=== PATIENT | female | born 1945 | race Caucasian/White ===

== ENCOUNTER 2016-11-21 11:21 | Observation (INO) | payer MEDICARE, OTHER ==
[2016-11-21] MEDS ORDERED: Acetaminophen TAB* 325 MG PO ONE (11:48)
[2016-11-21] MEDS ORDERED: Acetaminophen TAB* 325 MG ONE (11:49)
[2016-11-21] MEDS ORDERED: Ondansetron INJ* 2 MG/ML VIAL IV ONE (13:05)
[2016-11-21 13:11] LABS: Urine Bacteria Absent (Absent); Urine Bilirubin Negative (Negative); Urine Glucose Negative (Negative); Urine Nitrite Negative (Negative)
--- NOTE | 2016-11-21 13:32 | ED ---
Influenza-Like Illness - HPI Summary HPI Summary: 71 female presents today with complaints of feeling very ill, coughing, SOB, fever/chills, nausea and body aches. She states the symptoms were mild last night however got much worse upon waking up this morning. She states the cough is non-productive with only phlegm coming up. Denies hemoptysis and vomiting. Does have dry heaves. She did not have the flu shot this year. Has been around her daughter who has been sick and thinks she had the flu even though her cultures came back negative. She states every joint in her body ache including her toes, fingers, knees, back and opening her mouth. She also states she had a headache last night which she took Excedrin for and it did give her some relief. She has not tried taking anything else. Denies chest pain but states it does hurt when she coughs. Denies abdominal pain and diarrhea, constipation. Has not recently been in [place] and does not remember being bit by a tick. - History of Current Complaint Chief Complaint: EDUpperRespComplaint Time Seen by Provider: 11/21/16 11:43 Hx Obtained From: Patient Onset/Duration: Sudden Onset Severity: Worse Since: Associated Signs & Symptoms: Fever, Myalgia, Cough, Headache - Allergy/Home Medications Allergies/Adverse Reactions: Allergies Allergy/AdvReac Type Severity Reaction Status Date / Time Iodine Allergy Intermediate Rash Verified 02/24/16 10:03 Shellfish Allergy Allergy Rash Verified 02/24/16 10:03 ct contrast Allergy Rash Uncoded 03/19/16 12:42 PMH/Surg Hx/FS Hx/Imm Hx Endocrine/Hematology History: Reports: Hx Diabetes, Hx Thyroid Disease - HYPOTHYROIDISM Denies: Hx Anticoagulant Therapy Cardiovascular History: Reports: Hx Angina, Hx Hypercholesterolemia - HLD, Hx Hypertension GI History: Reports: Hx Gastroesophageal Reflux Disease Musculoskeletal History: Reports: Other Musculoskeletal History - DJD Sensory History: Reports: Hx Contacts or Glasses - FOR READING Opthamlomology History: Reports: Hx Contacts or Glasses - FOR READING - Cancer History Hx Chemotherapy: No Hx Radiation Therapy: No - Surgical History Surgery Procedure, Year, and Place: . Complete Hysterectomy. Hiatal Hernia Repair x2. bilat knee replacemnt-2008 Infectious Disease History: No Infectious Disease History: Denies: Hx Clostridium Difficile, Hx Hepatitis, Hx Human Immunodeficiency Virus (HIV), Hx of Known/Suspected MRSA, Hx Shingles, Hx Tuberculosis, Hx Known/ Suspected VRE, Hx Known/Suspected VRSA, History Other Infectious Disease, Traveled Outside the [place] in Last 30 Days - Family History Known Family History: Positive: Cardiac Disease, Hypertension - Social History Alcohol Use: None Substance Use Type: Reports: None Smoking Status (MU): Never Smoked Tobacco Have You Smoked in the Last Year: No Review of Systems Positive: Fever, Chills, Fatigue Eyes: Negative Positive: Sore Throat, Nasal Discharge Positive: Chest Pain - when coughing Positive: Shortness Of Breath, Cough Positive: Nausea Genitourinary: Negative Positive: Arthralgia - all joints, Myalgia Skin: Negative Neurological: Negative Psychological: Normal All Other Systems Reviewed And Are Negative: Yes Physical Exam Triage Information Reviewed: Yes Vital Signs On Initial Exam: Initial Vitals Temp Pulse Resp BP Pulse Ox 102.3 F 87 18 197/98 92 11/21/16 11:41 11/21/16 11:41 11/21/16 11:41 11/21/16 11:41 11/21/16 11:41 elevated BP, fever, low O2 Vital Signs Reviewed: Yes Appearance: Positive: No Pain Distress - unless moving joints, Well-Nourished, Ill-Appearing Skin: Positive: Warm, Dry Eyes: Positive: Normal, Conjunctiva Clear ENT: Positive: Normal ENT inspection, Hearing grossly normal, Pharynx normal, Nasal drainage, TMs normal Dental: Positive: Cervical Lymphadenopathy Neck: Positive: Supple, Nontender Respiratory/Lung Sounds: Positive: Clear to Auscultation, Breath Sounds Present Cardiovascular: Positive: Normal, RRR, Pulses are Symmetrical in both Upper and Lower Extremities Abdomen Description: Positive: Nontender, No Organomegaly, Soft Bowel Sounds: Positive: Present Musculoskeletal: Positive: Normal, Pain @ - when moving all joints, full ROM, sensation and strength intact.. Negative: Edema Left, Edema Right Neurological: Positive: Normal, Sensory/Motor Intact, Alert, Oriented to Person Place, Time, CN Intact II-III, Reflexes Intact, NV Bundle Intact Distally, Normal Gait, Speech Normal Psychiatric: Positive: Normal, Affect/Mood Appropriate - [place] Coma Scale Coma Scale Total: 15 Diagnostics - Vital Signs Vital Signs Temp Pulse Resp BP Pulse Ox 11/21/16 13:01 100.8 F 11/21/16 11:41 102.3 F 87 18 197/98 92 - Laboratory Lab Results: Lab Results 11/21/16 11/21/16 Range/Units 12:13 12:50 Urine Color Yellow Urine Appearance Clear Urine pH 7.0 (5-9) Ur Specific [place] 1.017 (1.010-1.030) Urine Protein 1+(30 mg/dl) H (Negative) Urine Ketones Negative (Negative) Urine Blood Negative (Negative) Urine Nitrate Negative (Negative) Urine Bilirubin Negative (Negative) Urine Urobilinogen Negative (Negative) Ur Leukocyte Esterase Negative (Negative) Urine WBC (Auto) Absent (Absent) Urine RBC (Auto) Absent (Absent) Ur Squamous Epith Cells Present H (Absent) Urine Bacteria Absent (Absent) Urine Glucose Negative (Negative) Influenza A (Rapid) Negative (Negative) Influenza B (Rapid) Negative (Negative) Result Diagrams: 11/21/16 13:15 11/21/16 13:15 Lab Statement: Any lab studies that have been ordered have been reviewed, and results considered in the medical decision making process. Re-Evaluation - Re-Evaluation First Eval Re-Evaluation Time: 14:00 Change: Improved - patient was feeling much better after fluids, tylenol, zofran and oxygen Flu Symptom Course/Dx - Course Course Of Treatment: labs, d-dimer, troponin, lipase and chest x-ray obtained. EKG-NSR, no stemi. unremarkable besides troponin at .04. fluids, zofran, oxygen and tylenol given. patient was feeling much better after however still felt very weak upon going to the bathroom and still feels ill. she would feel more comfortable staying in the hospital while symptoms persist. talked to hospitalist Dr Campuzano and he will admit her to OBV unit if patient persists. Discussed options of going home and being admitted. Patient has decided to go home at this time and with worsening symptoms knows to return. Will be treated for influenza despite negative culture as it could be a different strain. Tamiflu will be prescribed and prescription strength tylenol. Given dose of motrin before departing. - Diagnoses Differential Diagnosis/HQI/PQRI: Positive: Bronchitis, Influenza, Pneumonia, Upper Respiratory Infection, Other - Cardiac, PE, pancreatitis, sepsis Provider Diagnoses: Influenza, Fever Discharge - Discharge Plan Condition: Stable Disposition: HOME Prescriptions: Acetaminophen TAB* [Tylenol TAB*] 650 mg PO Q4H PRN #25 tab PRN Reason: Fever Oseltamivir CAP* [Tamiflu CAP*] 75 mg PO BID #10 cap Patient Education Materials: Influenza (ED) Referrals: Amol Chery MD [Primary Care Provider] - Additional Instructions: Take prescribed Tamiflu twice a day for the next 5 days to shorten illness. Take prescribed tylenol as directed to keep fever and pain under control. Alternate tylenol and motrin every 4 hours. Drink plenty of fluids and get plenty of rest. IF symptoms worsen and you experience difficulty breathing or chest pain or symptoms do not resolve in the next 5 days please seek medical attention. Follow up with primary care doctor is recommended.
[2016-11-21 13:34] LABS: Hematocrit 39 % (35-47); Hemoglobin 12.7 g/dl (12.0-16.0); Mean Corpuscular HGB Conc 33 g/dl (31-36); Mean Corpuscular Hemoglobin 27 pg (27-31); Mean Corpuscular Volume 82 fL (80-97); Mean Platelet Volume 11 um3 (7.4-10.4); Red Blood Count 4.67 10^6/ul (4.0-5.4); Red Cell Distribution Width 14 % (10.5-15); White Blood Count 6.8 10^3/ul (3.5-10.8)
[2016-11-21] MEDS ORDERED: NS 0.9% 1000 ML* 1,000 ML IV ONE ×2 (13:51→16:59)
[2016-11-21 13:52] LABS: Albumin 4.4 g/dL (3.2-5.2); BUN/Creatinine Ratio 25.4 (8-20); C Reactive Protein 8.16 mg/L (< 5.00); Calcium 9.7 mg/dL (8.6-10.3); EGFR African American 104.7 (>60); EGFR Non-African American 81.4 (>60); Potassium 3.8 mmol/L (3.5-5.0); Total Protein 7.4 g/dL (6.4-8.9)
--- NOTE | 2016-11-21 13:53 | RAD ---
HISTORY: Shortness of breath COMPARISONS: March 19, 2017 VIEWS: 2: Frontal dual-energy and lateral views of the chest. FINDINGS: CARDIOMEDIASTINAL SILHOUETTE: The cardiomediastinal silhouette is normal. MOSES: The moses are normal. PLEURA: The costophrenic angles are sharp. No pleural abnormalities are noted. LUNG PARENCHYMA: The lungs are clear. ABDOMEN: The upper abdomen is clear. There is no subphrenic gas. BONES AND SOFT TISSUES: Degenerative changes are noted along the spine. OTHER: None. IMPRESSION: NO ACTIVE CARDIOPULMONARY DISEASE.
[2016-11-21 13:56] LABS: Troponin I 0.04 ng/mL (<0.04)
[2016-11-21] MEDS ORDERED: Ibuprofen TAB* 600 MG PO ONE (16:41)
[2016-11-21] MEDS ORDERED: Oseltamivir CAP* 75 MG PO ONE (16:52)
[2016-11-21] MEDS ORDERED: Dextrose 50% Syringe 50 ML* 25 GM/50 ML SYRINGE IV PUSH PRN (17:55)
[2016-11-21] MEDS: Insulin LISPRO* 1 UNITS UNIT SUBCUT SCH (21:07)
[2016-11-21] MEDS: Heparin VIAL(*) 5000 UNITS/ML VIAL (FIVE THOUSAND) SUBCUT SCH (21:08)
--- NOTE | 2016-11-21 21:17 | HP ---
ADMISSION HISTORY AND PHYSICAL: DATE OF ADMISSION: 11/21/16 PRIMARY CARE PROVIDER: Dr. Chery. HEALTHCARE PROXY: . CODE STATUS: Full. SOURCE OF INFORMATION: History obtained from interview with the patient, review of past medical records. RELIABILITY: Fair. CHIEF COMPLAINT: Fever, myalgias. HISTORY OF PRESENT ILLNESS: A 71-year-old female with past medical history of diabetes, hypertension, hyperlipidemia, CAD, cardiac catheterization without intervention in January of 2016, who started feeling ill Sunday night, three days prior to this admission. On Sunday, she was feeling better; however , in the evening, again felt worse. 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 This morning at 3 a.m., she developed cough and generalized myalgias. Again, she went to work, developed increased myalgias, shortness of breath, and back ache. She went home, felt febrile, though did not measure temperature, came to the hospital where she was found to be acutely febrile. In the emergency room, her troponin was elevated at 0.05. Hospitalist service was consulted for admission. PAST MEDICAL HISTORY: Type 2 diabetes, hypertension, hyperlipidemia, hypothyroidism, GERD, degenerative joint disease, non-obstructive CAD with last cardiac catheterization in January 2016. PAST SURGICAL HISTORY: Hernia repair, hysterectomy, , bilateral knee replacement in 2008. HOME MEDICATIONS: Need to be confirmed; however, the patient indicates unchanged from last discharge include: 1. Amlodipine 2.5 mg. 2. Janumet 1 tab twice daily. 3. Rosuvastatin 10 mg daily. 4. Fish oil 1000 mg daily. 5. Naproxen 500 mg twice daily as needed. 6. Metoprolol tartrate 25 mg daily. 7. Synthroid 25 mcg daily. 8. Hydrochlorothiazide 25 mg daily. 9. Esomeprazole 40 mg daily. 10. Aspirin 81 mg daily. ALLERGIES: To IODINE, SHELLFISH, and CT CONTRAST. FAMILY HISTORY: Father with CAD. Mother with CAD and uterine cancer. Brother with CAD and RI. SOCIAL HISTORY: No tobacco, alcohol, or illicit's. 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 REVIEW OF SYSTEMS: As per HPI, otherwise all other systems are negative. PHYSICAL EXAMINATION GENERAL: Sitting up in bed, interactive, pleasant, no apparent distress. VITAL SIGNS: In the emergency room, T-max is 102.3, blood pressure 153/74, heart rate 81, respiratory rate is 20. HEENT: Oropharynx is clear. Has moist mucous membranes. Sclerae are anicteric. Coughing during our exam. LUNGS: Her lungs are diffusely clear throughout. HEART: Regular rate and rhythm. No murmurs, rubs, or gallops. ABDOMEN: Soft, nontender, nondistended. EXTREMITIES: Warm and well perfused without clubbing, cyanosis, edema, or warmth. She has 2+ peripheral pulses. Less than 2-second cap refill. Good skin turgor. NEUROLOGIC: She is A and O x3. Cranial nerves II through XII intact. No apparent agitation, anxiety, or depression. DIAGNOSTIC STUDIES/LAB DATA: Labs reviewed: Negative for rapid influenza. White blood cell count 6.8, hemoglobin 12.7, platelets 150. Troponin I 0.04, increasing to 0.05 on recheck at 3 hours. EKG: Normal sinus rhythm, 90 beats per minute. Normal limit axis, 1-mm ST depression in V5 and V6, T-wave inversions in aVF and II with Qs in III and aVF. Notable LVH. Cardiac catheterization, January 2016, impression: No significant stenotic coronary artery disease, mild disease as described above. Increased left ventricular end diastolic pressure in the face of central hypertension suggestive of decreased left ventricular diastolic compliance. ASSESSMENT AND PLAN: This is a 71-year-old female with past medical history as outlined above presenting with symptomatology consistent with upper respiratory tract infection, possibly flu, and found to have elevated troponin. 1. Shortness of breath and upper respiratory infection symptoms: Suspect flu despite negative testing. Symptomatic management and initiate Tamiflu. Continue fluids, which were initiated in the emergency room. 2. Elevated troponins: Suspect demand ischemia in the setting of known level of coronary artery disease and last cardiac catheterization in the absence of chest pain. Trend troponins while hospitalized. 3. Hypertension: Continue home medications. 4. Hypothyroidism: Continue levothyroxine. 5. Coronary artery disease: Continue aspirin. 6. DVT prophylaxis: Heparin subcu. 7. Code status is full. CC: Dr. Chery * [id number]/CPS #: [id number] [facility]
[2016-11-22] MEDS: Acetaminophen TAB* 325 MG PO PRN ×2 (03:33→09:32)
[2016-11-22] MEDS: Heparin VIAL(*) 5000 UNITS/ML VIAL (FIVE THOUSAND) SUBCUT SCH (05:13)
[2016-11-22] MEDS ORDERED: Levothyroxine TAB* 50 MCG TAB PO SCH (06:00)
[2016-11-22] MEDS ORDERED: metFORMIN* 1,000 MG TAB PO SCH (08:00)
[2016-11-22 08:01] VITALS: BP 131/64
[2016-11-22] MEDS: Insulin LISPRO* 1 UNITS UNIT SUBCUT SCH (08:41)
[2016-11-22] MEDS ORDERED: Aspirin Low Dose CHEW TAB* 81 MG PO SCH (09:00)
[2016-11-22] MEDS ORDERED: Oseltamivir CAP* 75 MG PO SCH (09:00)
[2016-11-22] MEDS ORDERED: amLODIPine TAB* 5 MG PO SCH (09:00)
[2016-11-22] MEDS ORDERED: Hydrochlorothiazide TAB* 25 MG PO SCH (09:00)
--- NOTE | 2016-11-22 10:42 | DS ---
DATE OF ADMISSION: 11/21/2016. DATE OF DISCHARGE: 11/22/2016. PRIMARY CARE PROVIDER: Dr. Chery. PRIMARY DIAGNOSIS: Suspected influenza infection. MEDICATIONS ON DISCHARGE: 1. Unchanged from home medications except for the addition of Tamiflu 75 mg twice daily for four additional days. 2. Janumet 50/100 twice daily. 3. Aspirin 81 mg daily. 4. Toprol unspecified. 5. Metoprolol Succinate or Tartrate 100 mg daily, suspected to be Succinate based on dosing. 6. Vytorin 10/20 one in the evening. 7. Hydrochlorothiazide 25 mg daily. 8. Synthroid 50 mcg daily. 9. Lisinopril 20 mg twice daily. 10. Isosorbide mononitrate 60 mg in the morning. 11. Lovaza two caps in the morning and at night. 12. Glyburide unspecified dose once daily. HISTORY OF PRESENT ILLNESS AND HOSPITAL COURSE: This is a pleasant, 71-year- old female with a past medical history as outlined in the history of present illness on the day admission who presented to the hospital with worsening fevers or myalgias. There is high suspicion for influenza; however, influenza was negative. The patient was concerned about returning home and the Hospitalist Service was consulted for admission. In addition, her troponin I increased from 0.04 to 0.05 prompting further evaluation on Telemetry overnight. It should be noted she had a recent cardiac catheterization in March that was negative for obstructive CAD. She had no chest pain during this event. She was monitored and received IV hydration. The following day on the day of discharge, she was much improved. She did have a fever overnight to 101.3, as well as on presentation, controlled with Tylenol. She was advised to continue Tylenol as needed for fevers once returning home and remain well hydrated. AT FOLLOW-UP, PLEASE: 1. Ensure patient continues correct home medications. 2. No other specific labs or vitals that need follow-up. REASONS TO RETURN TO THE HOSPITAL: Including, but not limited to recurrent or worsening symptoms, high fevers, chills, night sweats, chest pain, shortness of breath, lightheadedness, loss of conscious, near loss of consciousness, or inability to obtain or tolerate medications were discussed with the patient and she acknowledged understanding. Greater than 45 minutes were spent on the discharge of this patient with greater than half spent [id number] with the patient and her . CC: Dr. Chery* [id number]/CPS #: [id number] [facility]
== END 2016-11-22 10:36 | disposition home or self-care (01) ==
LOC: ED 11:21 → MEDTELE 17:47
PROVIDERS: ADMIT Internal Medicine; ATTEND Internal Medicine
DX: R50.9 Fever, unspecified (principal); M79.1 Myalgia; I10 Essential (primary) hypertension; E78.5 Hyperlipidemia, unspecified; I25.10 Atherosclerotic heart disease of native coronary artery without angina pectoris; R06.02 Shortness of breath; E11.9 Type 2 diabetes mellitus without complications; M19.90 Unspecified osteoarthritis, unspecified site
CPT/HCPCS: 36415; 71020; 80053; 81003; 81015; 83605; 83690; 84484; 85025; 85379; 86140; 87040; 87502; 93005; 96374; 99284; A9270-GY; G0378; J1644; J2405

== ENCOUNTER 2017-12-02 11:00 | Emergency (ER) | payer MEDICARE ==
[2017-12-02] MEDS ORDERED: oxyCODONE/Acetamin 5/325 MG* TAB PO ONE ×2 (11:09→12:54)
[2017-12-02] MEDS ORDERED: oxyCODONE/Acetamin 5/325 MG* TAB ONE (12:56)
--- NOTE | 2017-12-02 12:56 | RAD ---
INDICATION: Atraumatic knee pain COMPARISON: None TECHNIQUE: AP and lateral views were obtained. FINDINGS: There is mild spurring tibial spines and there is patellofemoral joint space narrowing. There is no acute bony change. There is no joint effusion. IMPRESSION: MINOR OSTEOARTHRITIC CHANGE
--- NOTE | 2017-12-02 13:01 | RAD ---
INDICATION: Atraumatic back and leg pain COMPARISON: None TECHNIQUE: Noncontrast axial source images was performed from the thoracolumbar junction to the sacrum. Coronal and and sagittal reformatted images were generated. FINDINGS: Vertebrae: There is no fracture or acute focal bony lesion. There are osteocytic changes with prominent facet arthropathy at L4-L5 and L5-S1. There is vacuum disc phenomena with partially calcified disc at L5-S1. Alignment: The lumbar vertebrae are normally aligned. Central Canal: There are no significant CT abnormalities of the central canal or foramina. MR imaging is a more sensitive method to evaluate the canal and foramina. Intervertebral disc spaces: The disc spaces are maintained. Soft tissues: The paravertebral soft tissues are normal. Other: None IMPRESSION: NO ACUTE CT FINDINGS. MODERATE FACET ARTHROPATHY L4-L5 AND L5-S1. DEGENERATIVE DISEASE L5-S1 appear
--- NOTE | 2017-12-02 13:34 | RAD ---
INDICATION: Pain and swelling. COMPARISON: None TECHNIQUE: Duplex interrogation of the Lowerextremity was performed. FINDINGS: Deep veins: The common femoral, great saphenous, profunda femoris, proximal, mid, and distal deep femoral, popliteal, posterior tibial, and peroneal veins are patent. There is normal compressibility, augmentation, and phasic flow. Superficial veins: There are no findings of superficial thrombophlebitis. Popliteal fossa:There is no evidence of a popliteal cyst. Soft tissues:There are no soft tissue abnormalities. IMPRESSION: Normal examination. No evidence of deep venous thrombosis
[2017-12-02 15:01] VITALS: BP 151/95
--- NOTE | 2017-12-02 22:22 | ED ---
Yunier Farris Stephanie, scribed for Hossein Tavares MD on 12/02/17 at 1131 . Lower Extremity - HPI Summary HPI Summary: The pt is a 72 y/o F presenting to the ED with c/o L knee pain that began last night. Symptoms include chronic lower back pain. The pt states she felt something snap in her knee. The pain is located behind the L knee and radiated down her L leg to her toes. She states that if she did not grab something next to her, she would have fallen. The pt reports a lump behind her L knee. She has titanium in her R knee. At 10:15 this morning she took naproxen for pain relief. Aggravating factors include standing and ambulating. - History of Current Complaint Stated Complaint: LEFT LEG PAIN Time Seen by Provider: 12/02/17 11:04 Hx Obtained From: Patient Onset of Pain: Post Accident Onset/Duration: Still Present - 1 Severity Currently: Severe Pain Intensity: 10 Pain Scale Used: 0-10 Numeric Timing: Constant Location: Is Discrete @ - L knee/LE Associated Signs And Symptoms: Positive: Knee Pain Aggravating Factor(s): Standing, Ambulation, Movement Alleviating Factor(s): Rest Able to Bear Weight: No - Allergies/Home Medications Allergies/Adverse Reactions: Allergies Allergy/AdvReac Type Severity Reaction Status Date / Time Iodinated Contrast- Oral and Allergy Rash Verified 12/02/17 11:44 IV Dye iodine Allergy Rash Verified 12/02/17 11:44 shellfish derived Allergy Rash Verified 12/02/17 11:44 PMH/Surg Hx/FS Hx/Imm Hx Endocrine/Hematology History: Reports: Hx Diabetes, Hx Thyroid Disease - HYPOTHYROIDISM Denies: Hx Anticoagulant Therapy Cardiovascular History: Reports: Hx Angina, Hx Hypercholesterolemia - HLD, Hx Hypertension GI History: Reports: Hx Gastroesophageal Reflux Disease Musculoskeletal History: Reports: Other Musculoskeletal History - DJD Sensory History: Reports: Hx Contacts or Glasses - FOR READING Opthamlomology History: Reports: Hx Contacts or Glasses - FOR READING - Cancer History Hx Chemotherapy: No Hx Radiation Therapy: No - Surgical History Surgery Procedure, Year, and Place: . Complete Hysterectomy. Hiatal Hernia Repair x2. bilat knee replacemnt-2008 Hx Anesthesia Reactions: No - Immunization History Date of Tetanus Vaccine: up to date Date of Influenza Vaccine: never Infectious Disease History: No Infectious Disease History: Denies: Hx Clostridium Difficile, Hx Hepatitis, Hx Human Immunodeficiency Virus (HIV), Hx of Known/Suspected MRSA, Hx Shingles, Hx Tuberculosis, Hx Known/ Suspected VRE, Hx Known/Suspected VRSA, History Other Infectious Disease, Traveled Outside the [place] in Last 30 Days - Family History Known Family History: Positive: Cardiac Disease, Hypertension - Social History Occupation: Employed Part-time Lives: With Family Alcohol Use: Rare Substance Use Type: Reports: None Smoking Status (MU): Never Smoked Tobacco Have You Smoked in the Last Year: No Review of Systems Negative: Fever Positive: Other - L knee pain, L LE pain, chronic lower back pain All Other Systems Reviewed And Are Negative: Yes Physical Exam - Summary Physical Exam Summary: General: well-appearing, no pain distress Skin: warm, color reflects adequate perfusion, dry Head: normal Eyes: EOMI, LICHA ENT: normal Neck: supple, nontender Respiratory: CTA, breath sounds present Cardiovascular: RRR Abdomen: soft, nontender Bowel: present Musculoskeletal:Tender to palpation; most tender in popliteal, pain with ROM, knee stable to exam, no effusion Neurological: normal, sensory/motor intact, A&O x3 Psychological: affect/mood appropriate Triage Information Reviewed: Yes Vital Signs On Initial Exam: Initial Vitals Temp Pulse Resp BP Pulse Ox 96.9 F 65 16 187/80 96 12/02/17 11:11 12/02/17 11:11 12/02/17 11:11 12/02/17 11:11 12/02/17 11:11 Vital Signs Reviewed: Yes Diagnostics - Vital Signs Vital Signs Temp Pulse Resp BP Pulse Ox 12/02/17 11:18 16 12/02/17 11:11 96.9 F 65 16 187/80 96 - Laboratory Lab Statement: Any lab studies that have been ordered have been reviewed, and results considered in the medical decision making process. - Radiology XRay Knee Xray Interpretation: Positive (See Comments) Radiology Interpretation Completed By: Radiologist - MINOR OSTEOARTHRITIC CHANGE - CT Lumbar Spine CT Interpretation: No Acute Changes CT Interpretation Completed By: Radiologist - NO ACUTE CT FINDINGS. MODERATE FACET ARTHROPATHY L4-L5 AND L5-S1. DEGENERATIVE DISEASE L5-S1 appear - Additional Comments Diagnostic Additional Comments: LE US reveals: Normal examination. No evidence of deep venous thrombosis Lower Extremity Course/Dx - Course Course Of Treatment: BP noted and advised to follow up with PCP. Medications reviewed. Allergies noted. DISCUSSED RESULTS WITH PATIENT. F/U PMD OR ORTHOPEDICS. - Diagnoses Provider Diagnoses: HTN (hypertension), Left knee pain Discharge - Discharge Plan Condition: Stable Disposition: HOME Prescriptions: oxyCODONE/Acetamin 5/325 MG* [Percocet 5/325 TAB*] 1 tab PO Q4H PRN #20 tab MDD 6 PRN Reason: Pain Patient Education Materials: Knee Pain (ED), Back Pain (ED) Referrals: Amol Chery MD [Primary Care Provider] - Additional Instructions: FOLLOW UP WITH YOUR DOCTOR. RETURN TO THE EMERGENCY DEPARTMENT FOR ANY WORSENING OF YOUR CONDITION OR QUESTIONS OR CONCERNS. YOUR BLOOD PRESSURE WAS ELEVATED TODAY; FOLLOW UP WITH YOUR PRIMARY CARE DOCTOR WITHIN THE NEXT 1 WEEK. The documentation as recorded by the Yunier allen Stephanie accurately reflects the service I personally performed and the decisions made by me, Hossein Tavares MD.
== END 2017-12-02 15:00 | disposition home or self-care (01) ==
LOC: ED 11:00
DX: I10 Essential (primary) hypertension (principal); M25.562 Pain in left knee; M54.5 Low back pain; Z87.19 Personal history of other diseases of the digestive system
CPT/HCPCS: 72131; 99283; A9270-GY

== ENCOUNTER 2018-03-28 09:38 | Emergency (ER) | payer MEDICARE, OTHER ==
[2018-03-28] MEDS ORDERED: cloNIDine TAB* 0.1 MG PO ONE (10:22)
--- OUTSIDE RECORDS SUMMARY | 2018-03-28 10:33 | XMS REPORT ---
:1945 External Reference #:[id number] Author Organization [employer] Address [address] [facility] [place] [address] Phone [phone] Care Team Providers Name Role Phone Amol Chery MD Primary Care Physician Unavailable Payers Type Date Identification Numbers Payment Provider Subscriber Medicare Primary Effective: Policy Number: Medicare Amarilis Calderon 2010 [id number] PayID: [id number] [address] [place] [address] Medigap Part B Policy Number: [id number] A[employer] Insurance Amarilis Hernandesnlori PayID: [id number] [address] [place] [address] Medigap Part B Effective: Policy Number: A[employer]na Insurance Alejandro Calderon 2006 [id number] Expires: 2016 Group Number: [id number] [address] PayID: [id number] [place] [address] Problems Date Description Provider Status Onset: 12/06/2017 H/O: hypertension Scott Grove MD Active Onset: 12/06/2017 Hypercholesterolemia Scott Grove MD Active Onset: 12/06/2017 Arthritis Scott Grove MD Active Onset: 12/06/2017 Type 2 diabetes mellitus Scott Grove MD Active Family History Date Family Member(s) Problem(s) Comments General No Current Problems Father due to CAD () Mother due to Ovarian () Cancer Onset: (03/13/2018) Siblings 5 Siblings 5 1 - cardiac issues Social History Type Date Description Comments Lives With Spouse 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 Simvastatin 03/13 Active Tablets 20mg 1 by mouth every day Oscar Wood M.D. Walker 01/15 Active Misc x one M25.562 Gwen Grove MD Percocet 01/15 Active Tablets 5-325mg 10tab 1 tab by s mouth every F 6 hours as Perfecto, needed Tramadol HCL 12/12 Active Tablets 50mg 30tab 1 tablet by s mouth every F 4-6 hours Perfecto, as needed pain Aspirin Adult Low Active Tablets 81mg 1 by mouth Unknown Dose /0000 DR every day Toprol XL Active Tablets 100mg 1 by mouth Unknown /0000 ER 24HR every day Hydrochlorothiazid Active Tablets 25mg 1 by mouth Unknown e /0000 every day Synthroid Active Tablets 50mcg 1 by mouth Unknown /0000 every day Lisinopril Active Tablets 10mg 1 by mouth Unknown /0000 every day Glyburide Active Tablets 5mg take one Unknown /0000 tablet by mouth daily Naproxen Active Tablets 375mg twice a day Unknown /0000 with food Janumet XR Active Tablets 50-1000mg 1 po bid Unknown /0000 ER 24HR Simvastatin Hx Tablets 20mg Take 1 Unknown /0000 Tablet By - Mouth AT 12 Bedtime Cholesterol Janumet Hx Tablets 50-1000mg take 1 Unknown /0000 tablet by - mouth twice 03/12 a day Vytorin Hx Tablets 10-20mg 1 by mouth Unknown /0000 every day - 03/12 Isosorbide Hx Tablets 60mg take one by Unknown Mononitrate ER /0000 ER 24HR mouth once - daily 03/12 Lovaza 00 Hx Capsules 1gm take one Unknown /0000 capsule by - mouth twice 03/12 Medications Administered in Office Medication Date Status Form Strength Qnty SIG Indications Ordering Provider Depomedrol Administered Injection Scott F 40MG Charley Grove MD Depomedrol Administered Injection Scott F 40MG Charley Grove MD Vital Signs Date Vital Result Comment 03/13/2018 Height 60 inches 5'0" Weight 180.00 lb w/shoes Heart Rate 72 /min BP Systolic Sitting 134 mmHg lue lg cuff BP Diastolic Sitting 74 mmHg lue lg cuff BMI (Body Mass Index) 35.1 kg/m2 Ejection Fraction 45% stress test 06/22/2011 03/11/2018 Height 60 inches 5'0" Heart Rate 76 /min BP Systolic 152 mmHg BP Diastolic 80 mmHg Respiratory Rate 18 /min Body Temperature 98.0 F Pain Level 10 02/26/2018 Height 60 inches 5'0" Weight 190.00 lb Heart Rate 88 /min BP Systolic Sitting 148 mmHg BP Diastolic Sitting 88 mmHg Respiratory Rate 16 /min Body Temperature 98.0 F Pain Level 7 BMI (Body Mass Index) 37.1 kg/m2 01/15/2018 Heart Rate 76 /min BP Systolic 160 mmHg BP Diastolic 82 mmHg Respiratory Rate 12 /min Body Temperature 97.4 F Pain Level 8 01/08/2018 Heart Rate 76 /min BP Systolic 160 mmHg BP Diastolic 104 mmHg Respiratory Rate 20 /min Body Temperature 97.8 F Pain Level 12 12/06/2017 Height 60 inches 5'0" Weight 190.00 lb Heart Rate 66 /min BP Systolic 146 mmHg BP Diastolic 88 mmHg Respiratory Rate 16 /min Body Temperature 98.0 F Pain Level 6 BMI (Body Mass Index) 37.1 kg/m2 Results Description No Information Procedures Date CPT Code Description Status 03/13/2018 77693 EKG Tracing & Interpretation Completed 02/26/2018 18231 Inject/Drain Joint/Bursa Major W/O US Completed 12/06/2017 51193 Inject/Drain Joint/Bursa Major W/O US Completed 02/26/2016 38851 Left Heart Cath. Incl S/I Coronaries, Angio S/I V Gram Completed If Done 02/25/2016 09244 Treadmill Interp/Report Only Completed 02/25/2016 29056 Stress Test Supervsn W/Out I/R Completed 02/24/2016 96514 EKG, Interpretation Only Completed 01/04/2011 26555 Xray Knee 3 Views Completed 01/04/2011 89071 Rad Exam; Knee, Ap&L Completed 09/06/2009 90618 Rad Exam; Both Knees, Standing Ap Completed 07/27/2009 72573 TKR Total Knee Replacement Completed 07/27/2009 99017 TKR Total Knee Replacement Completed Encounters Type Date Location Provider CPT E/M Dx Office Visit 03/13/2018 11:40a [facility] Tom Wood M.D. 88023 I10 E78.00 I25.10 I50.32 R94.31 Office Visit 02/26/2018 1:00p [facility] [place], [address] M25.562 Of [place] WAYNE M17.12 S83.242D Office Visit 01/15/2018 3:00p [facility] 94677 M25.562 Of [place] WAY[place] S83.242D S83.32xD Office Visit 01/08/2018 9:30a [facility] 47077 M25.562 Of [place] WAY[place] M66.0 M17.12 Office Visit 12/06/2017 1:45p [facility] [place], [address]682 M16.11 [place] WAYNE M17.12 M66.0 Office Visit 11/22/2016 8:48a [facility], [place], [address] J11.1 Hospitalists Rahat R74.8 E03.9 I10 Office Visit 11/21/2016 8:47a [facility], [place], [address] J11.1 Hospitalists Rahat R74.8 E03.9 I10 Office Visit 02/26/2016 12:54p [facility], [place] [address] R07.9 Hospitalists E11.9 I10 E03.9 Office Visit 02/25/2016 12:53p [facility] [place], [address] R07.9 Assoc, MARCELO Hospitalists E11.9 I10 E03.9 Office Visit 02/24/2016 12:52p [facility], Urszula Mcgarry, FIRE PREVENTION RESEARCH ENGINEER [address] R07.9 Hospitalists E11.9 I10 E03.9 Office Visit 01/04/2011 10:30a [facility] M.D. 04264 715.96 C.M.A. Office Visit 01/05/2010 2:00p [facility] M.D. 85295 715.96 C.M.A. Office Visit 07/05/2009 2:30p [facility] M.D. 25110 715.16 C.M.A. 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
--- OUTSIDE RECORDS SUMMARY | 2018-03-28 10:33 | XMS REPORT ---
:1945 External Reference #:[id number] Author Organization [employer] Address [address] [facility] [place] [address] Phone [phone] Care Team Providers Name Role Phone Amol Chery MD Primary Care Physician Unavailable Payers Type Date Identification Numbers Payment Provider Subscriber Medicare Primary Effective: Policy Number: Medicare Amarilis Calderon 2010 [id number] PayID: [id number] [address] [place] [address] Medigap Part B Policy Number: [id number] A[employer]na Insurance Amarilis Calderon PayID: [id number] [address] [place] [address] Medigap Part B Effective: Policy Number: Aetna Insurance Alejandro Calderon 2006 [id number] Expires: 2016 Group Number: [id number] [address] PayID: [id number] [place] [address] Problems Date Description Provider Status Onset: 12/06/2017 H/O: hypertension Scott Grove MD Active Onset: 12/06/2017 Hypercholesterolemia Scott Grove MD Active Onset: 12/06/2017 Arthritis Scott Grove MD Active Onset: 12/06/2017 Type 2 diabetes mellitus Scott Grove MD Active Family History Date Family Member(s) Problem(s) Comments General No Current Problems Social History Type Date Description Comments 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 ETOH Use Denies alcohol use Smoking Patient has never smoked Allergies, Adverse Reactions, Alerts Date Description Reaction Status Severity Comments 12/06/2017 Seafood active Medications Medication Date Status Form Strength Qnty SIG Indications Ordering Provider Walker 01/15 Active Misc x one M25.562 F MD Perfecto Percocet 01/15 Active Tablets 5-325mg 10tab 1 tab by s mouth every F 6 hours as Perfecto, needed Tramadol HCL 12/12 Active Tablets 50mg 30tab 1 tablet by s mouth every F 4-6 hours Perfecto, as needed pain Simvastatin Active Tablets 20mg Take 1 Unknown /0000 Tablet By Mouth AT Bedtime For Cholesterol Janumet Active Tablets 50-1000mg take 1 Unknown /0000 tablet by mouth twice a day Aspirin Adult Low Active Tablets 81mg 1 by mouth Unknown Dose /0000 DR every day Toprol XL Active Tablets 100mg 1 by mouth Unknown /0000 ER 24HR every day Vytorin Active Tablets 10-20mg 1 by mouth Unknown /0000 every day Hydrochlorothiazid Active Tablets 25mg 1 by mouth Unknown e /0000 every day Synthroid Active Tablets 50mcg 1 by mouth Unknown /0000 every day Lisinopril Active Tablets 20mg 1 by mouth Unknown /0000 every day Isosorbide Active Tablets 60mg take one by Unknown Mononitrate ER /0000 ER 24HR mouth once daily Lovaza Active Capsules 1gm take one Unknown /0000 capsule by mouth twice a day Glyburide Active Tablets 5mg take one Unknown /0000 tablet by mouth twice daily before breakfast and dinner Naproxen Active Tablets 375mg twice a day Unknown /0000 with food Medications Administered in Office Medication Date Status Form Strength Qnty SIG Indications Ordering Provider Depomedrol Administered Injection Scott F 40MG 018 MD Perfecto Depomedrol Administered Injection Scott F 40MG 018 MD Perfecto Vital Signs Date Vital Result Comment 03/11/2018 Height 60 inches 5'0" Heart Rate [...] Information Procedures Date CPT Code Description Status 02/26/2018 Inject/Drain Joint/Bursa Major Completed 12/06/201746292 Inject/Drain Joint/Bursa Major Completed 02/26/2016 88487 Left Heart Cath. Incl S/I Coronaries, Angio S/I V Gram Completed If Done 02/25/2016 87985 Treadmill Interp/Report Only Completed 02/25/2016 01846 Stress Test Supervsn W/Out I/R Completed 02/24/2016 99340 EKG, Interpretation Only Completed 01/04/2011 96886 Xray Knee 3 Views Completed 01/04/2011 61231 Rad Exam; Knee, Ap&L Completed 09/06/2009 71691 Rad Exam; Both Knees, Standing Ap Completed 07/27/2009 51101 TKR Total Knee Replacement Completed 07/27/2009 40858 TKR Total Knee Replacement Completed Encounters Type Date Location Provider CPT E/M Dx Office Visit 01/15/2018 [facility], [address] M25.562 3:00p Of [place] WAYNE S83.242D S83.32xD Office Visit 01/08/2018 9:30a [facility] [place], [address] M25.562 Of [place] WAYNE M66.0 M17.12 Office Visit 12/06/2017 1:45p [facility] [place], 64454 M16.11 [place] WAYNE M17.12 M66.0 Office Visit 11/22/2016 8:48a [facility], [place], [address] J11.1 Hospitalists Rahat R74.8 E03.9 I10 Office Visit 11/21/2016 8:47a [facility] [place], [address] J11.1 Hospitalists Rahat R74.8 E03.9 I10 Office Visit 02/26/2016 12:54p [facility] Camrencita Crawley, [place] [address] R07.9 Hospitalists E11.9 I10 E03.9 Office Visit 02/25/2016 12:53p [facility] [place], [address] R07.9 Assoc,pc VENDETTE Hospitalists E11.9 I10 E03.9 Office Visit 02/24/2016 12:52p [facility],[place] [address] R07.9 Hospitalists E11.9 I10 E03.9 Office Visit 01/04/2011 10:30a [facility]ab[place] M.D. 45128 715.96 C.M.A. Office Visit 01/05/2010 2:00p [facility] M.D. 24639 715.96 C.M.A. Office Visit 07/05/2009 2:30p [facility] M.D. 93268 715.16 C.M.A. Plan of Care Future Appointment(s):04/05/2018 1:00 pm - Scott Grove MD at [facility]05/02/2018 1:00 pm - Scott Grove MD at [facility]03/11/2018 - Scott Grove, MDM25.562 Pain in left kneeFollow up:Follow up: to ORM17.12 Unilateral primary osteoarthritis, left knee
[2018-03-28 11:36] VITALS: BP 154/75
--- NOTE | 2018-03-28 11:39 | ED ---
Anne Farris Emily, scribed for [employer] on 03/28/18 at 1025 . Hypertension - HPI Summary HPI Summary: This patient is a 73 year old F referred [place] [facility] [place] accompanied by with a chief complaint of high blood pressure that began 3 days ago. The patient rates the pain 3/10 in severity. Symptoms aggravated by nothing. Symptoms alleviated by nothing. Patient reports ROBBINS. Patient denies CP and SOB. reports that the patient saw a dentist three days ago, and the dentist is her worst fear; her blood pressure has been elevated since then. Pt reports that she was at her PCP, having an echocardiogram done. Pt reports that she is currently on blood pressure medication. - History of Current Complaint Chief Complaint: EDHypertension Stated Complaint: HIGH BP Time Seen by Provider: 03/28/18 10:11 Hx Obtained From: Patient, Family/Vehicle Technician Onset/Duration: Started Days Ago Timing: Constant Aggravating Factor(s): Nothing Alleviating Factor(s): Nothing Associated Signs & Symptoms: Headaches - Allergies/Home Medications Allergies/Adverse Reactions: Allergies Allergy/AdvReac Type Severity Reaction Status Date / Time Iodinated Contrast- Oral and Allergy Rash Verified 03/28/18 09:51 IV Dye iodine Allergy Rash Verified 03/28/18 09:51 shellfish derived Allergy Rash Verified 03/28/18 09:51 Home Medications: Home Medications Aspirin EC TAB* [Ecotrin EC Low Dose 81 MG*] 81 mg PO QAM 03/28/18 [History Confirmed 03/28/18] Levothyroxine TAB* [Synthroid TAB*] 50 mcg PO QAM 03/28/18 [History Confirmed ] Lisinopril TAB* [Prinivil TAB*] 10 mg PO QAM 03/28/18 [History Confirmed ] Magnesium Oxide [Magnesium] 100 mg PO QPM 03/28/18 [History Confirmed 03/28/18] Metoprolol Succinate XL TAB* [Toprol XL TAB*] 100 mg PO QPM 03/28/18 [History Confirmed 03/28/18] Sitaglip/Metform XR50/1000(NR) [Janumet Xr (NR)] 1 tab PO BID 03/28/18 [ History Confirmed 03/28/18] glipiZIDE TAB.XL* [Glucotrol XL*] 5 mg PO QAM 03/28/18 [History Confirmed ] PMH/Surg Hx/FS Hx/Imm Hx Previously Healthy: No Endocrine/Hematology History: Reports: Hx Diabetes, Hx Thyroid Disease - HYPOTHYROIDISM Denies: Hx Anticoagulant Therapy Cardiovascular History: Reports: Hx Angina, Hx Hypercholesterolemia - HLD, Hx Hypertension Denies: Hx Pacemaker/ICD GI History: Reports: Hx Gastroesophageal Reflux Disease History: Denies: Hx Renal Disease Musculoskeletal History: Reports: Other Musculoskeletal History - DJD Sensory History: Reports: Hx Contacts or Glasses - FOR READING Denies: Hx Hearing Aid Opthamlomology History: Reports: Hx Contacts or Glasses - FOR READING Psychiatric History: Denies: Hx Panic Disorder - Cancer History Hx Chemotherapy: No Hx Radiation Therapy: No - Surgical History Surgery Procedure, Year, and Place: . Complete Hysterectomy. Hiatal Hernia Repair x2. RIGHT knee replacemnt-2008 Hx Anesthesia Reactions: No - Immunization History Date of Tetanus Vaccine: up to date Date of Influenza Vaccine: never Infectious Disease History: Denies: Hx Clostridium Difficile, Hx Hepatitis, Hx Human Immunodeficiency Virus (HIV), Hx of Known/Suspected MRSA, Hx Shingles, Hx Tuberculosis, Hx Known/ Suspected VRE, Hx Known/Suspected VRSA, History Other Infectious Disease - Family History Known Family History: Positive: Cardiac Disease, Hypertension - Social History Occupation: Employed Full-time Lives: With Family Alcohol Use: Rare Hx Substance Use: No Substance Use Type: Reports: None Hx Tobacco Use: No Smoking Status (MU): Never Smoked Tobacco Have You Smoked in the Last Year: No Review of Systems Positive: Other - Positive elevated blood pressure. Negative: Chest Pain Negative: Shortness Of Breath Positive: Headache All Other Systems Reviewed And Are Negative: Yes Physical Exam - Summary Physical Exam Summary: Appearance: Well appearing, no pain distress Skin: warm, dry, reflects adequate perfusion Head/face: normal Eyes: EOMI, LICHA ENT: normal Neck: supple, non-tender Respiratory: CTA, breath sounds present Cardiovascular: RRR, pulses symmetrical Abdomen: non-tender, soft Bowel: present Musculoskeletal: normal, strength/ROM intact Neuro: normal, sensory motor intact, A&Ox3 Triage Information Reviewed: Yes Vital Signs On Initial Exam: Initial Vitals Pulse Resp Pulse Ox 60 27 96 03/28/18 09:48 03/28/18 09:48 03/28/18 09:48 Vital Signs Reviewed: Yes Diagnostics - Vital Signs Vital Signs Temp Pulse Resp BP Pulse Ox 03/28/18 10:07 97.7 F 03/28/18 09:49 61 28 214/105 98 03/28/18 09:48 60 27 96 - Laboratory Lab Statement: Any lab studies that have been ordered have been reviewed, and results considered in the medical decision making process. - EKG 1001 Cardiac Rate: Bradycardia - 49 BPM EKG Rhythm: Sinus Rhythm ST Segment: Normal Ectopy: None Re-Evaluation - Re-Evaluation First Eval Re-Evaluation Time: 11:30 Change: Improved Comment: Patient's blood pressure has come down. Discussed plan of care and results with pt Hypertension Course/Dx - Course Course Of Treatment: This patient is a 73 year old F referred [place] [facility] [place] accompanied by with a chief complaint of high blood pressure that began 3 days ago. In the ED course the patient was given Clonidine. Patient's blood pressure came down. No bloodwork needed at present, which was done 3 days ago. Increase Lisinopril to 20 mg. Patient will be discharged with prescription for Lisonpril and follow up from PCP. The patient is agreeable with this plan. - Diagnoses Provider Diagnoses: Hypertension Discharge - Sign-Out/Discharge Documenting (check all that apply): Discharge/Admit/Transfer - Discharge home - Discharge Plan Condition: Stable Disposition: HOME Prescriptions: Lisinopril TAB* [Prinivil TAB 10 MG*] 20 mg PO DAILY #30 tab Patient Education Materials: Lisinopril (By mouth), Hypertension (ED) Referrals: Amol Chery MD [Primary Care Provider] - 3 Days Additional Instructions: RETURN TO THE EMERGENCY DEPARTMENT FOR NEW OR WORSENING SYMPTOMS The documentation as recorded by the Anne allen Emily accurately reflects the service I personally performed and the decisions made by , [employer].
== END 2018-03-28 11:47 | disposition home or self-care (01) ==
LOC: ED 09:38
DX: I10 Essential (primary) hypertension (principal); R51 Headache; E11.9 Type 2 diabetes mellitus without complications; Z91.013 Allergy to seafood
CPT/HCPCS: 93005; 99283; A9270-GY

== ENCOUNTER 2018-04-05 11:09 | Inpatient (IN) | payer MEDICARE, OTHER ==
--- NOTE | 2018-03-14 06:31 | HP ---
HISTORY AND PHYSICAL: DATE OF SURGERY: 04/05/18 DATE OF HISTORY AND PHYSICAL: 03/11/18 SURGEON: Dr. Scott Grove.* (DICTATED BY LEANN PENA) PROCEDURE: Left total knee arthroplasty. CHIEF COMPLAINT: Left knee pain. 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 As a review, the patient developed left knee pain 3 months ago on December 01, 2017. It was mild in severity. Then the next day, December 02, while working, she twisted her knee, which produced severe pain, posterior. The patient had a cortisone injection on December 06 which only reduced the pain for 1-2 days. She re-presented to clinic on January 08 despite some physical therapy. She was using her 's walker at home. We reviewed an MRI and reviewed her January 15 clinic visit. It demonstrated a posterior root tear of the medial meniscus, bony edema, medial femoral condyle, and arthritic changes of the knee. I ordered a medial proposal writer to unload the medical compartment bony contusion. The patient eventually decided to try this. The patient was last seen on February 26. We aspirated the patient's knee as she had an effusion, and this was her request. We aspirated 24 mL and then injected cortisone. Our plan at the February 26 clinic visit was for the patient to follow up in 2 months. I talked to her about the surgical options including total knee arthroplasty, unicompartmental medial knee arthroplasty, and knee arthroscopy. The patient is presenting earlier than scheduled because of the severity of her pain. She is unable to walk and is using her 's walker at home. She is in severe pain and wants an operation. She denies any history of problems with anesthesia and no history of DVT or PE per herself or in her family. PAST MEDICAL HISTORY: Includes hypertension, hyperlipidemia, osteoarthritis, type 2 diabetes, angina, and hypothyroidism. PAST SURGICAL HISTORY: Right total knee arthroplasty, hysterectomy, hiatal hernia repair x2, , and abdominal hernia repair. MEDICATIONS: 1. Simvastatin 20 mg. 2. Janumet mg twice daily. 3. Baby aspirin. 4. Toprol-XL 100 mg. 5. Vytorin 10/20 mg daily. 6. Hydrochlorothiazide 25 mg daily. 7. Synthroid 50 mcg daily. 8. Lisinopril 20 mg daily. 9. Isosorbide mononitrate ER 60 mg daily. 10. Glyburide 5 mg twice daily. 11. Naproxen 375 mg as needed. FAMILY MEDICAL HISTORY: Father with throat cancer, [place], and stroke. Brother with CAD. SOCIAL HISTORY: Denies a history of tobacco use, alcohol use, or illicit drug use. REVIEW OF SYSTEMS: Positive for her presenting complaints as outlined in the HPI as well as history of diabetes and thyroid disease. Otherwise, a 14-point system review was negative or noncontributory. PHYSICAL EXAMINATION GENERAL: Well-nourished, well-developed 73-year-old female, in no acute distress. Alert and oriented x3. No gross neurological deficiencies. The patient is not able to ambulate today and is sitting comfortably in a wheelchair. Muscle bulk and tone symmetrical bilateral upper and lower extremities. VITAL SIGNS: Height 60 inches. Pulse 76, blood pressure 152/80, respirations 18, temperature 98. Pain level 10. HEENT: Normocephalic, atraumatic. Pupils equally round and reactive to light. Extraocular movements intact. NECK: Supple. No palpable cervical lymph nodes. Thyroid is smooth and nontender. PULMONARY: Lungs clear to auscultation bilaterally with no wheezes, rales, or rhonchi. CARDIAC: Regular rate and rhythm with no murmurs, rubs, gallops. EXTREMITIES: Left knee exam shows fzyw-my-zyihiork effusion. No other soft tissue swelling or bruising. Skin is intact. Passive range of motion is 7 to 95 degrees of flexion. Positive medial and lateral joint line tenderness to palpation, medial greater than lateral. Generalized knee pain with Jessi's testing. No pain or increased laxity with ligamentous stress testing. Positive patellofemoral compartment tenderness to palpation. Neurovascularly intact distally. DIAGNOSTIC STUDIES: X-rays from 02/26/18 show severe medial compartment joint space narrowing, mild spurring in the patellofemoral compartment and perhaps some mild joint space narrowing in that compartment as well, lateral compartment of the patella appears to be well preserved. MRI from 01/10/18 shows posterior root tear medial meniscus, some edema of the medial femoral condyle focally, some edema of the undersurface of the patella and articular cartilage loss throughout the knee. IMPRESSION: 1. Left knee osteoarthritis, worse in the medial compartment. 2. Left knee posterior tear medial meniscus. 3. Bony edema in medial femoral condyle and her patella. PLAN: 1. Amarilis is scheduled to undergo a left total knee arthroplasty with Dr. Scott Grove on 04/05/18. 2. She will return to clinic 10 to 14 days postop for suture removal and recheck. 3. Prescription for pain medication as well as for DVT prophylaxis will be prescribed on day of surgery. All questions were answered today. 4. We generally try to avoid a cortisone injection within 3 months of an arthroplasty procedure. The patient had a cortisone injection during her February 26 clinic visit. Infection is certainly a concern, especially in patients who are diabetic with a higher BMI such as the patient's, which is 37.1. However , given the patient's severity of pain and her desire for immediate surgery, I will attempt to expedite total knee arthroplasty surgery in the next month. I will place the patient on oral antibiotics for 7-10 days after the procedure as a precautionary measure. 5. The patient has not had a Hemoglobin A1C recently, although it was 7.0 1-2 years ago. We will obtain a new value as part of our pre-op testing. ANDRE MARKER, LEANN [id number]/[facility] #: [id number] NIKITA
[~2018-04-05 11:09] MED LIST: Acetaminophen TAB* 325 MG PO ONE; Buffered Lidocaine 0.9% SYRIN* 5 ML/SYR SYRINGE INTRADERM ONE; Dexamethasone IV* 4 MG/ML 1 ML (4 MG) ONE; Famotidine IV* 10 MG/ML 2 ML (20 mg) IV ONE; Gabapentin CAP(*) 300 MG PO ONE; KETAMINE HCL* 50 MG/ML 10 ML VIAL ONE; Lidocaine 2% PF * 5 ML VIAL ONE; Midazolam* 1 MG/ML 10 ML VIAL (10 MG) ONE; Ondansetron INJ* 2 MG/ML VIAL ONE; Propofol* 10 MG/ML 20 ML BTL IV PUSH ONE; ROPIVACAINE 5 MG/ML 30 ML BTL (0.5%) ONE; celeCOXIB CAP* 200 MG PO ONE; fentaNYL* 50 MCG/ML 2 ML VIAL (100 MCG VIAL) ONE
--- OUTSIDE RECORDS SUMMARY | 2018-04-05 11:16 | XMS REPORT ---
:1945 External Reference #:[id number] Author Organization [facility] Address [address] [place] [address] Phone [phone] Care Team Providers Name Role Phone Amol Chery MD Primary Care Physician Unavailable Payers Type Date Identification Numbers Payment Provider Subscriber Medicare Primary Effective: Policy Number: Medicare Amarilis Calderon 2010 [id number] PayID: [id number] [address] [place] [address] Medigap Part B Policy Number: [id number] [employer] Insurance Amarilis Hernandesnlori PayID: [id number] [address] [place] [address] Medigap Part B Effective: Policy Number: [employer] Insurance Alejandro Calderon 2006 [id number] Expires: 2016 Group Number: [id number] [address] PayID: [id number] [place] [address] Problems Date Description Provider Status Onset: 12/06/2017 [...] Date Description Comments Lives With Spouse Occupation [employer] ETOH Use Denies alcohol use Smoking Patient has never smoked Recreational Drug Use Denies Drug Use Daily Caffeine Consumes on average 1 cup of regular coffee per day Exercise Type/Frequency Does not exercise Allergies, Adverse Reactions, Alerts Date Description Reaction Status Severity Comments 12/06/2017 Seafood active 03/13/2018 Iodine active hives Medications Medication Date Status Form Strength Qnty SIG Indications Ordering Provider Augmentin 03/29 Active Tablets 500-125mg 10tab take one s tab every F 12 hours Perfecto, for 5 days. Magpure 03/13 Active Tablets 100mg 1 po [...] 24HR every day Hydrochlorothiazid Active Tablets 25mg 10tab 1 by mouth Nina e / s every day MD Tom Synthroid Active Tablets 50mcg 1 by mouth Unknown /0000 every day Lisinopril Active Tablets 10mg 2 by mouth Unknown /0000 every day Glyburide Active Tablets 5mg take one Unknown /0000 tablet by mouth daily Naproxen Active Tablets 375mg twice a day Unknown /0000 with food prn Janumet XR Active Tablets 50-1000mg 1 po bid Unknown /0000 ER 24HR Bactrim DS 03/29 Hx Tablets 800-160mg 9tabs 1 tab twice a day for 3 F - days Perfecto 03/29 Simvastatin Hx Tablets 20mg Take 1 Unknown /0000 Tablet By - Mouth AT 03/12 Bedtime Cholesterol Janumet Hx Tablets 50-1000mg take 1 Unknown /0000 tablet by - mouth twice 03/12 Vytorin Hx Tablets 10-20mg 1 by mouth Unknown /0000 every day - 03/12 Isosorbide Hx Tablets 60mg take one by Unknown Mononitrate ER /0000 ER 24HR mouth once - daily 03/12 Lovaza Hx Capsules 1gm take one Unknown /0000 capsule by - mouth twice 03/12 Medications Administered in Office Medication Date Status Form Strength Qnty SIG Indications Ordering Provider Depomedrol Administered Injection Scott F 40MG 018 MD Magda Groveomednahun Administered Injection Scott F 40MG 018 MD Perfecto Vital Signs Date Vital Result Comment 04/02/2018 Height 60 inches 5'0" Weight 195.00 lb without shoes Heart Rate 70 /min BP Systolic Sitting 144 mmHg Rue lg cuff BP Diastolic Sitting 82 mmHg Rue lg cuff BP Systolic Standing 148 mmHg Rue lg cuff BP Diastolic Standing 90 mmHg Rue lg cuff Respiratory Rate 16 /min BMI (Body Mass Index) 38.1 kg/m2 Ejection Fraction 35-40% date 03/28/18 ECHO 04/02/2018 Height 60 inches 5'0" Heart Rate 72 /min BP Systolic 142 mmHg Ra, reg BP Diastolic 94 mmHg Ra, reg BP Systolic Sitting 142 mmHg LA, reg BP Diastolic Sitting 88 mmHg LA, reg 03/13/2018 Height 60 inches 5'0" Weight 180.00 [...] BMI (Body Mass Index) 37.1 kg/m2 Results Test Date Test Result H/L Range Note CBC Auto Diff 03/25/2018 White Blood Count 6.9 10^3/uL 3.5-10.8 Red Blood Count 4.98 10^6/uL 4.00-5.40 Hemoglobin 14.3 g/dL 12.0-16.0 Hematocrit 42 % 35-47 Mean Corpuscular Volume 85 fL 80-97 Mean Corpuscular Hemoglobin 29 pg 27-31 Mean Corpuscular HGB Conc 34 g/dL 31-36 Red Cell Distribution Width 14 % 10.5-15 Platelet Count 212 10^3/uL 150-450 Mean Platelet Volume 10.7 um3 High 7.4-10.4 Abs Neutrophils 4.1 10^3/uL 1.5-7.7 Abs Lymphocytes 2.2 10^3/uL 1.0-4.8 Abs Monocytes 0.5 10^3/uL 0-0.8 Abs Eosinophils 0.1 10^3/uL 0-0.6 Abs Basophils 0 10^3/uL 0-0.2 Abs Nucleated RBC 0 10^3/uL Granulocyte % 59.7 % 38-83 Lymphocyte % 31.5 % 25-47 Monocyte % 7.7 % High 0-7 Eosinophil % 0.8 % 0-6 Basophil % 0.3 % 0-2 Nucleated Red Blood Cells % 0 Inr/Protime 03/25/2018 Inr 0.92 0.77-1.02 Laboratory test finding 03/25/2018 Partial Thrombo Time 26.4 seconds 26.0 -36.3 PTT Type & Screen 03/25/2018 Patient Blood Type A Negative Antibody Screen NEGATIVE Comp Metabolic Panel 03/25/2018 Sodium 140 mmol/L 135-145 Potassium 4.3 mmol/L 3.5-5.0 Chloride 103 mmol/L 101-111 Co2 Carbon Dioxide 27 mmol/L 22-32 Anion Gap 10 mmol/L 2-11 Glucose 153 mg/dL High 70-100 Blood Urea Nitrogen 20 mg/dL 6-24 Creatinine 0.76 mg/dL 0.51-0.95 BUN/Creatinine Ratio 26.3 High 8-20 Calcium 9.7 mg/dL 8.6-10.3 Total Protein 7.4 g/dL 6.4-8.9 Albumin 4.3 g/dL 3.2-5.2 Globulin 3.1 g/dL 2-4 Albumin/Globulin Ratio 1.4 1-3 Total Bilirubin 1.10 mg/dL High 0.2-1.0 Alkaline Phosphatase 45 U/L 34-104 Alt 24 U/L 7-52 Ast 21 U/L 13-39 Egfr Non- 74.8 >60 Egfr 90.5 >60 1 Urinalysis Profile 03/25/2018 Urine Color Elena Urine Appearance Clear Urine Specific [place] 1.028 1.010-1.030 Urine pH 5.0 5-9 Urine Urobilinogen Negative Negative Urine Ketones Negative Negative Urine Protein Negative Negative Urine Leukocytes Negative Negative Urine Blood Negative Negative Urine Nitrite Negative Negative Urine Bilirubin Negative Negative Urine Glucose Negative Negative Urine Culture And Sensitivities 03/25/2018 Urine Culture SEE RESULT BELOW 2 1 Because ethnic data is not always readily available, this report includes an eGFR for both -Americans and non- Americans. The National Kidney Disease Education Program (NKDEP) does not endorse the use of the MDRD equation for patients that are not between the ages of 18 and 70, are , have extremes of body size, muscle mass, or nutritional status, or are non- or non-. According to the National Kidney Foundation, irrespective of diagnosis, the stage of the disease is based on the level of kidney function: Stage Description GFR(mL/min/1.73 m(2)) 1 Kidney damage with normal or decreased GFR 90 2 Kidney damage with mild decrease in GFR 60-89 3 Moderate decrease in GFR 30-59 4 Severe decrease in GFR 15-29 5 Kidney failure <15 (or dialysis) 2 SEE RESULT BELOW Name: AMARILIS CALDERON : [address]: Scott Grove MD Acct: [id number] Unit: [id number] AGE: 73 Location: [facility] Re03/25/18 SEX: F Status: REG REF SPEC: [id number] RAUL: 03/25/18-[address] [facility] [address]: Scott Grove MD REQ: [id number] RECD: 03/25/18 STATUS: STAN LIN DR: Amol Chery MD _ SOURCE: URINE SPDESC: ORDERED: Urine Culture Procedure Result Reported Site Urine Culture Final 03/27/18- 0744 ML Organism 1 ESCHERICHIA COLI [place] Count 75-100,000 (Many) CFU/ML Organism 2 NORMAL MOUSTAPHA [place] Count 10-25,000 (Moderate) CFU/ML 1. ESCHERICHIA COLI M.I.C. RX --------- ------ Ampicillin 16 I Cefazolin <=4 S Cefepime <=1 S Ceftriaxone <=1 S Ciprofloxacin <=0.25 S Gentamicin <=1 S Levofloxacin <=0.12 S Meropenem <=0.25 S Nitrofurantoin <=16 S Tetracycline 2 S Pipercillin/Tazobactam 8 S Trimethoprim/Sulfamethoxazole <=20 S Amoxicillin/Clavulanic Acid 4 S Aztreonam <=1 S Contact the Microbiology Department for any additional antibiotic reporting. * ML - Main Lab . END OF REPORT DEPARTMENT OF PATHOLOGY, [address] [place] [address] Judd Capps M.D. Director [facility] # [id number] Procedures Date CPT Code Description Status 04/02/2018 82584 EKG Tracing & Interpretation Completed 03/28/2018 23245 ECHO Transthoracic, Real-Time 2D With Doppler And Color Completed Flow 03/28/2018 97025 ECHO Transthoracic, Real-Time 2D With Doppler And Color Completed Flow 03/13/2018 42789 EKG Tracing & Interpretation Completed 02/26/2018 29502 Inject/Drain Joint/Bursa Major W/O US Completed 12/06/2017 33423 Inject/Drain Joint/Bursa Major W/O US Completed 02/26/2016 34578 Left Heart Cath. Incl S/I Coronaries, Angio S/I V Gram Completed If Done 02/25/2016 01094 Treadmill Interp/Report Only Completed 02/25/2016 61929 Stress Test Supervsn W/Out I/R Completed 02/24/2016 89860 EKG, Interpretation Only Completed 01/04/2011 62455 Xray Knee 3 Views Completed 01/04/2011 37658 Rad Exam; Knee, Ap&L Completed 09/06/2009 91771 Rad Exam; Both Knees, Standing Ap Completed 07/27/2009 16422 TKR Total Knee Replacement Completed 07/27/2009 40589 TKR Total Knee Replacement Completed Encounters Type Date Location Provider CPT E/M Dx Office Visit 03/13/2018 11:40a [facility] Tom Wood M.D. 46543 I10 E78.00 I25.10 I50.32 R94.31 Office Visit 03/11/2018 1:00p [facility] [place], 41692 M25.562 Of [place] WAYNE M17.12 S83.242D Office Visit 02/26/2018 1:00p [facility] [place] 38045 M25.562 Of [place] WAYNE M17.12 S83.242D Office Visit 01/15/2018 3:00p [facility] [place] 84095 M25.562 Of [place] WAYNE S83.242D S83.32xD Office Visit 01/08/2018 9:30a [facility] [place] 88363 M25.562 Of [place] WAYNE M66.0 M17.12 Office Visit 12/06/2017 1:45p [facility] [place], [address] M16.11 Brid[place] WAYNE M17.12 M66.0 Office Visit 11/22/2016 8:48a [facility], [place], [address] J11.1 Hospitalists Rahat R74.8 E03.9 I10 Office Visit 11/21/2016 8:47a [facility], [place], [address] J11.1 Hospitalists Rahat R74.8 E03.9 I10 Office Visit 02/26/2016 12:54p [facility], [place] [address] R07.9 Hospitalists E11.9 I10 E03.9 Office Visit 02/25/2016 12:53p [facility] [place], [address] R07.9 Assoc,pc CIVIL MANAGER Hospitalists E11.9 I10 E03.9 Office Visit 02/24/2016 12:52p [facility], Urszula Mcgarry, CIVIL MANAGER 349[address] R07.9 Hospitalists E11.9 I10 E03.9 Office Visit 01/04/2011 10:30a [facility]abia M.D. 85861 715.96 C.M.A. Office Visit 01/05/2010 2:00p [facility] M.D. 48278 715.96 C.M.A. Office Visit 07/05/2009 2:30p [facility]ab[facility] M.D. 80603 715.16 C.M.A. Plan of Care Future Appointment(s):05/03/2018 11:30 am - Prachi Brewster NMatias at [facility]04/05/2018 10:00 am - Jared Cortez PA-C at [facility].04/05/2018 10:00 am - Scott Grove MD at [facility].05/02/2018 1:00 pm - Scott Grove MD at [facility].04/02/2018 - Prachi Brewster NAydeP.I10 Essential (primary) hypertensionFollow up:1mo after surgery for CM and BP JFM 4 monthsRecommendations:HOLD Naproxen Continue Lisinopril at current doseR94.31 Abnormal electrocardiogram [ECG] [EKG]I42.9 Cardiomyopathy, mlmvrwhuglzK89.00 Pure hypercholesterolemia, wbrcnhoxlljV09.10 Athscl heart disease of [place] coronary artery w/o ang pctrs
[2018-04-05] MEDS ORDERED: celeCOXIB CAP* 100 MG ONE (11:29)
[2018-04-05] MEDS ORDERED: Famotidine IV* 10 MG/ML 2 ML (20 mg) ONE (11:29)
[2018-04-05] MEDS ORDERED: Gabapentin CAP(*) 300 MG ONE (11:30)
[2018-04-05] MEDS ORDERED: Acetaminophen TAB* 325 MG ONE (11:30)
[2018-04-05] MEDS ORDERED: ceFAZolin 2 GM PREMIX (*) 2 GM/50 ML BAG IVPB ONE (11:30)
[2018-04-05] MEDS ORDERED: Buffered Lidocaine 0.9% SYRIN* 5 ML/SYR SYRINGE ONE (11:30)
[2018-04-05] MEDS ORDERED: Tranexamic Acid 1,000 MG/10 ML 1,000 MG in NS 0.9% 100 ML* 100 ML IV ONE (12:00)
[2018-04-05] MEDS ORDERED: Tranexamic Acid 1,000 MG/10 ML SDV IV ONE (13:02)
[2018-04-05] MEDS ORDERED: Cisatracurium* 2 MG/ML MDV 5 ML ONE (13:22)
[2018-04-05] MEDS ORDERED: EPHEDrine (Pressors)* 50 MG/ML VIAL ONE (13:35)
[2018-04-05] MEDS ORDERED: Atropine 1MG/ML INJ* 1 ML VIAL ONE (13:48)
[2018-04-05] MEDS ORDERED: fentaNYL* 50 MCG/ML 2 ML VIAL (100 MCG VIAL) ONE (13:58)
[2018-04-05] MEDS ORDERED: hydrALAZINE IV* 20 MG/ML VIAL ONE (14:04)
[2018-04-05] MEDS ORDERED: Bupivacaine 0.5% PF 10 ML VIAL INJ ONE (15:28)
[2018-04-05] MEDS ORDERED: fentaNYL* 50 MCG/ML 2 ML VIAL (100 MCG VIAL) IV PRN (15:30)
[2018-04-05] MEDS ORDERED: Naloxone* 0.4 MG/ML 1 ML VIAL IV PRN (15:30)
[2018-04-05] MEDS ORDERED: Ondansetron INJ* 2 MG/ML VIAL IV PRN ×2 (15:30→16:03)
[2018-04-05] MEDS ORDERED: HYDROmorphone INJ* 0.5 MG/0.5 ML SYRINGE IV PRN (15:30)
[2018-04-05] MEDS ORDERED: HYDROmorphone INJ* 0.5 MG/0.5 ML SYRINGE ONE ×3 (15:48→17:42)
[2018-04-05] MEDS ORDERED: oxyCODONE/Acetamin 5/325 MG* TAB PO PRN (16:03)
[2018-04-05] MEDS ORDERED: Magnesium Hydroxide LIQ* 30 ML UDC PO PRN (16:03)
[2018-04-05] MEDS ORDERED: Cyclobenzaprine TAB* 10 MG PO PRN (16:03)
[2018-04-05] MEDS ORDERED: Acetaminophen TAB* 325 MG PO PRN (16:03)
[2018-04-05] MEDS ORDERED: Morphine VIAL* 4 MG/ML VIAL (1 ml vial) IV PRN (16:03)
[2018-04-05] MEDS ORDERED: diPHENhydraMINE IV* 50 MG/ML 1 ml VIAL (BENADRYL) IV PRN (16:03)
[2018-04-05] MEDS ORDERED: Bisacodyl SUPP* 10 MG SUPP PR PRN (16:03)
[2018-04-05] MEDS ORDERED: oxyCODONE/Acetamin 5/325 MG* TAB ONE (17:41)
--- NOTE | 2018-04-05 17:41 | RAD ---
INDICATION: Status post left total knee arthroplasty COMPARISON: Preoperative knee radiograph February 26, 2018 TECHNIQUE: 3 view radiograph of the left knee. FINDINGS: The left knee prosthesis is anatomically aligned in the AP and lateral projections. Postsurgical changes include gas in the subcutaneous tissue above the patella and surgical skin liza. IMPRESSION: Anatomic alignment of left knee prosthesis with expected postoperative findings.
[2018-04-05] MEDS: oxyCODONE/Acetamin 5/325 MG* TAB PO PRN (17:47)
[2018-04-05] MEDS ORDERED: Dextrose 50% Syringe 50 ML* 25 GM/50 ML SYRINGE IV PUSH PRN (19:31)
[2018-04-05] MEDS: Metoprolol Succinate XL TAB* 100 MG PO SCH (21:48)
[2018-04-05] MEDS: Atorvastatin* 10 MG TAB PO SCH (21:48)
[2018-04-05] MEDS: Docusate CAP* 100 MG PO SCH (21:48)
[2018-04-05] MEDS: ceFAZolin 1 GM in Dextrose (*) 1 GM/50 ML BAG IVPB SCH (21:51)
[2018-04-05] MEDS: Magnesium Hydroxide LIQ* 30 ML UDC PO SCH (22:03)
[2018-04-05] MEDS: Insulin LISPRO* 1 UNITS UNIT SUBCUT SCH (22:03)
--- NOTE | 2018-04-06 00:11 | CONS ---
[facility] MEDICINE CONSULTATION REPORT: DATE OF CONSULT: 04/05/18 PROVIDER: Marian Newell NP ATTENDING PHYSICIAN: Dr. Grove. CONSULTING PHYSICIAN: Dr. Delvin Flynn (dictated by Marian Newell NP). REASON FOR CONSULT: Comanagement of chronic medical conditions. HISTORY OF PRESENT ILLNESS: Ms. Calderon is a 73-year-old female with a past medical history significant for hypertension, hyperlipidemia, osteoarthritis, type 2 diabetes, angina, and hypothyroidism, who presented to the hospital today for an elective left total knee arthroplasty with Dr. Grove. Please see dictated H and P from LEANN Tamez for complete details. In brief, the patient had ongoing pain and failed conservative measures and therefore opted for a left total knee arthroplasty. In the immediate postoperative period , the patient complains of left knee pain. She has no other complaints. She denies any chest pain or shortness of breath. She denies any nausea, vomiting, or diarrhea. Denies any abdominal pain. Denies any fever or chills. Denies any cough or congestion. Given her prior history of hypertension and diabetes, we were asked to consult and help manage her chronic medical conditions. PAST MEDICAL HISTORY: 1. Hypertension. 2. Hyperlipidemia. 3. Osteoarthritis. 4. Type 2 diabetes. 5. Angina. 6. Hypothyroidism. PAST SURGICAL HISTORY: 1. Right total knee arthroplasty. 2. Hysterectomy. 3. Hiatal hernia repair. 4. x2. 5. Abdominal hernia repair. MEDICATIONS: Outpatient: 1. Simvastatin 20 mg p.o. daily. 2. Janumet 50/100 mg p.o. daily. 3. Aspirin 81 mg p.o. daily. 4. Toprol-XL 100 mg p.o. daily. 5. Hydrochlorothiazide 25 mg p.o. daily. 6. Synthroid 50 mcg p.o. daily. 7. Lisinopril 20 mg p.o. daily. 8. Imdur ER 60 mg p.o. daily. 9. Glyburide 5 mg p.o. b.i.d. 10. Naproxen. ALLERGIES: She has allergy to SEAFOOD and IODINE. FAMILY HISTORY: Father with a history of CVA and DC. Brother with a history of coronary artery disease. Father with a history of throat cancer. SOCIAL HISTORY: She denies any tobacco, alcohol or illicit drug use. She is . Surrogate decision maker in the event she is unable to make her own decisions is her , Alejandro. His phone number is [phone]. She is a full code. REVIEW OF SYSTEMS: General: She denies any fever or chills. Denies any loss of appetite. Denies any chest pain or shortness of breath. Denies any cough, congestion, hemoptysis, or shortness of breath. GI: Denies any nausea, vomiting, diarrhea, or abdominal pain. : Denies any gross hematuria or dysuria. Neuro: She denies any focal weakness or sensory loss. Eyes: No visual complaints. Denies any difficulty swallowing. She does report a sore throat postoperatively. Musculoskeletal: She does complain of left knee pain. Skin: Denies any rashes or lesions. Denies any depression or anxiety. PHYSICAL EXAM: The patient is drowsy postoperatively, resting on the stretcher in the PACU. She does complain of left knee pain, rated at an 8. She does not appear to be in any acute distress. Eyes: EOMs are intact. Sclerae anicteric and not pale. Oral mucosa appears to be moist. Cardiac: S1, S2. Regular rate and rhythm. Respiratory: Lung sounds are clear to auscultation bilaterally. There is no accessory muscle use. Abdomen is soft and nontender. Bowel sounds are present x4. Musculoskeletal: There is no clubbing or cyanosis. Sensation is intact to bilateral lower extremities. Pedal pulses are +2 bilaterally. Skin: She has a dressing intact to her left knee. There is no drainage at this time. Neuro: There are no focal deficits noted. She is alert and oriented x3. Psych: She does not appear depressed. She is drowsy postoperatively. DIAGNOSTIC STUDIES/LAB DATA: Preop laboratory data: WBCs were 6.9, RBCs 4.98, hemoglobin was 14.3, hematocrit was 42, platelet count was 212. INR was 0.92. PTT was 26.4. Sodium 140, potassium 4.3, chloride 103, carbon dioxide of 27, anion gap of 10, BUN was 20, creatinine 0.76. A1c was 7.0. Calcium was 9.7. Urine color was sara. Urine appearance was clear, pH was 5, specific gravity was 1.028. Urine protein, ketones, blood, nitrites, bilirubin, urobilinogen, leukocyte esterase were all negative. Urine glucose was negative. IMPRESSION AND PLAN: Ms. Calderon is a 73-year-old female with past medical history significant for hypertension, hyperlipidemia, diabetes, angina, hypothyroidism, and osteoarthritis, who presented to the hospital today for an elective left total knee arthroplasty with Dr. Grove. In the immediate postoperative period, she does complain of left knee pain. Hospital Medicine was asked to consult to help manage her chronic medical conditions. Our recommendations are as follows: 1. Left total knee arthroplasty. Management per Orthopedics. PT/OT per Orthopedics. 2. Hypertension. We will continue lisinopril and metoprolol. I will hold the hydrochlorothiazide at this time. We consider hydralazine for systolic blood pressure greater than 180 and continue to monitor her blood pressure throughout her hospitalization. 3. Diabetes. We will hold her Janumet and glyburide. I will place her on lispro sliding scale and Accu-Cheks a.c. and h.s. 4. Hypothyroidism. She should continue her Synthroid 50 mcg p.o. daily. 5. Hyperlipidemia. She should continue her simvastatin 20 mg p.o. daily. 6. FEN. She should be placed on a heart-healthy, consistent carb diet. 7. Code status. She is a full code. 8. DVT prophylaxis. As per Orthopedics. 9. Disposition. Inpatient. TIME SPENT: Time spent on this consultation was approximately 45 minutes, more than half the time was spent with the patient and her at the bedside reviewing events leading to her hospitalization and thus far during the hospitalization, performing my physical exam, and reviewing my plan of care. I have discussed this with my attending, Dr. Delvin Flynn; he is in agreement with my plan. MARIAN NEWELL, SEED CLEANER OPERATOR [id number]/[facility] #: [id number] NIKITA
[2018-04-06] MEDS: oxyCODONE/Acetamin 5/325 MG* TAB PO PRN ×6 (01:35→23:10)
[2018-04-06] MEDS: ceFAZolin 1 GM in Dextrose (*) 1 GM/50 ML BAG IVPB SCH ×3 (05:37→21:10)
[2018-04-06] MEDS: Levothyroxine TAB* 50 MCG TAB PO SCH (05:38)
[2018-04-06 06:17] LABS: Hematocrit 36 % (35-47); Hemoglobin 11.9 g/dl (12.0-16.0); Mean Platelet Volume 10.1 um3 (7.4-10.4); Platelet Count 230 10^3/ul (150-450)
[2018-04-06 06:34] LABS: EGFR Non-African American 60.8 (>60)
[2018-04-06] MEDS: Insulin LISPRO* 1 UNITS UNIT SUBCUT SCH ×4 (08:06→21:25)
[2018-04-06] MEDS: Apixaban* 2.5 MG TAB PO SCH ×2 (08:08→21:09)
[2018-04-06] MEDS: Magnesium Hydroxide LIQ* 30 ML UDC PO SCH ×2 (08:08→21:10)
[2018-04-06] MEDS: Vitamin THERAPEUTIC TAB PO SCH (08:08)
[2018-04-06] MEDS: Docusate CAP* 100 MG PO SCH ×2 (08:08→21:10)
[2018-04-06] MEDS: Lisinopril TAB* 10 MG PO SCH (08:08)
--- NOTE | 2018-04-06 09:51 | PN ---
Progress Note - Progress Note Date of Service: 04/06/18 SOAP: Subjective: Doing well. Walked with PT to the bathroom this morning. Objective: LLE: - DOROTHY dressing in place - NVID Selected Entries 04/06/18 07:26 Temperature 98.3 F Pulse Rate 68 Respiratory 16 Rate Blood Pressure 131/65 (mmHg) O2 Sat by Pulse 94 Oximetry Laboratory Tests 04/05/18 04/06/18 04/06/18 21:52 05:46 05:46 Hct 36 Creatinine 0.91 POC Glucose (mg/dL) 230 H 04/06/18 07:19 Hct Creatinine POC Glucose (mg/dL) 180 H x-rays: components nicely in place, no fracture Assessment: POD 1 L TKA Plan: - Eliquis - PT, OOB, WBAT - Med manage HTN - Ancef x 2 days postop
--- NOTE | 2018-04-06 12:22 | PN ---
Subjective Date of Service: 04/06/18 Interval History: C/o left knee pain but states that it is tolerable. states Denies chest pain or shortness of breath. denies abd pain. States has ambulated to the bathroom x 2 today and doing well. Family History: Unchanged from Admission Social History: Unchanged from Admission Past Medical History: Unchanged from Admission Objective Active Medications: Acetaminophen (Tylenol Tab*) 650 mg PO Q4H PRN PRN Reason: PAIN OR TEMPERATURE Apixaban (Eliquis) 2.5 mg PO BID [facility] Last Admin: 04/06/18 08:08 Dose: 2.5 mg Atorvastatin Calcium (Lipitor*) 20 mg PO QPM [facility] Last Admin: 04/05/18 21:48 Dose: 20 mg Bisacodyl (Dulcolax Supp*) 10 mg [place] DAILY PRN PRN Reason: constipation Cyclobenzaprine HCl (Flexeril Tab*) 5 mg PO TID PRN PRN Reason: SPASMS Last Admin: 04/05/18 21:47 Dose: 5 mg Dextrose (D50w Syringe 50 Ml*) 12.5 gm IV PUSH .FOR FS < 60 - SS PRN PRN Reason: FS < 60 Diphenhydramine HCl (Benadryl Iv*) 25 mg IV Q6H PRN PRN Reason: itching Docusate Sodium (Colace Cap*) 100 mg PO BID [facility] Last Admin: 04/06/18 08:08 Dose: 100 mg Cefazolin Sodium/Dextrose (Kefzol 1 Gm In Dextrose Duplex (*)) 1 gm in 50 mls @ 200 mls/hr IVPB Q8H [facility] Stop: 04/07/18 13:44 Last Admin: 04/06/18 05:37 Dose: 200 mls/hr Lactated Ringer's (Lactated Ringers 1000 Ml Bag*) 1,000 mls @ 75 mls/hr IV PER RATE [facility] Last Admin: 04/05/18 19:48 Dose: 75 mls/hr Insulin Human Lispro (Humalog*) 0 units SUBCUT ACHS [facility]; Protocol Last Admin: 04/06/18 08:06 Dose: 2 unit Lactulose (Lactulose*) 30 ml PO Q6H PRN PRN Reason: constipation Levothyroxine Sodium (Synthroid Tab*) 50 mcg PO DAILY@0600 [facility] Last Admin: 04/06/18 05:38 Dose: 50 mcg Lisinopril (Prinivil Tab*) 20 mg PO QAM [facility] Last Admin: 04/06/18 08:08 Dose: 20 mg Magnesium Hydroxide (Milk Of Magnesia Liq*) 30 ml PO BID [facility] Last Admin: 04/06/18 08:08 Dose: 30 ml Magnesium Hydroxide (Milk Of Magnesia Liq*) 30 ml PO Q6H PRN PRN Reason: constipation Metoprolol Succinate (Toprol Xl Tab*) 100 mg PO QPM [facility] Last Admin: 04/05/18 21:48 Dose: 100 mg Morphine Sulfate (Morphine Vial*) 2 mg IV Q2H PRN PRN Reason: PAIN Multivitamins (Theragran Tab*) 1 tab PO DAILY [facility] Last Admin: 04/06/18 08:08 Dose: 1 tab Ondansetron HCl (Zofran Inj*) 4 mg IV Q6H PRN PRN Reason: nausea Last Admin: 04/05/18 20:14 Dose: 4 mg Oxycodone HCl (Roxycodone Tab*) 10 mg PO Q4H PRN PRN Reason: PAIN - SEVERE Oxycodone/Acetaminophen (Percocet 5/325 Tab*) 2 tab PO Q4H PRN PRN Reason: PAIN Last Admin: 04/06/18 11:07 Dose: 2 tab Oxycodone/Acetaminophen (Percocet 5/325 Tab*) 1 tab PO Q4H PRN PRN Reason: PAIN Vital Signs - 8 hr 04/06/18 04/06/18 04/06/18 04:41 05:55 07:26 Temperature 98.3 F Pulse Rate 68 Respiratory 18 16 Rate Blood Pressure 131/65 (mmHg) O2 Sat by Pulse 98 94 Oximetry 04/06/18 04/06/18 04/06/18 07:28 09:41 11:07 Temperature Pulse Rate Respiratory 18 16 18 Rate Blood Pressure (mmHg) O2 Sat by Pulse Oximetry 04/06/18 11:33 Temperature 97.6 F Pulse Rate 65 Respiratory 17 Rate Blood Pressure 127/64 (mmHg) O2 Sat by Pulse 94 Oximetry Oxygen Devices in Use Now: Nasal Cannula Appearance: appears comfortable sitting in the bed Eyes: No Scleral Icterus Ears/Nose/Mouth/Throat: Clear Oropharnyx, Mucous Membranes Moist Neck: NL Appearance and Movements; NL JVP, Trachea Midline Respiratory: Symmetrical Chest Expansion and Respiratory Effort, Clear to Auscultation Cardiovascular: NL Sounds; No Murmurs; No JVD, No Edema Abdominal: NL Sounds; No Tenderness; No Distention Skin: No Rash or Ulcers, No Nodules or Sclerosis, - - dressing intact to left knee Neurological: Alert and Oriented x 3 Nutrition: Taking PO's Result Diagrams: 04/06/18 05:46 04/06/18 05:46 Assess/Plan/Problems-Billing Assessment: Ms. Calderon is a 73 y.o female who presented to the hospital for an elective total left knee arthroplasty. The patient carries a hx of htn, HLD and DM. We were consulted to co manage her chronic medical conditions - Patient Problems (1) Status post total left knee replacement Current Visit: Yes Status: Acute Code(s): Z96.652 - PRESENCE OF LEFT ARTIFICIAL KNEE JOINT SNOMED Code(s): 5890128825542 Comment: managment per orthopedics PT/OT per orthopedics (2) Hypertension Current Visit: No Status: Acute Code(s): I10 - ESSENTIAL (PRIMARY) HYPERTENSION SNOMED Code(s): 43844160 Comment: stable today - will continue lisinopril and metoprolol - will continue to monitor (3) Diabetes Current Visit: No Status: Chronic Code(s): E11.9 - TYPE 2 DIABETES MELLITUS WITHOUT COMPLICATIONS SNOMED Code(s): 04128183 Comment: Lispro SS. CC diet. finger sticks (4) Hyperlipidemia Current Visit: No Status: Chronic Code(s): E78.5 - HYPERLIPIDEMIA, UNSPECIFIED SNOMED Code(s): 94352007 Comment: - Continue Statin. (5) Hypothyroidism Current Visit: No Status: Chronic Code(s): E03.9 - HYPOTHYROIDISM, UNSPECIFIED SNOMED Code(s): 38531997 Comment: Continue levothyroxine. (6) DVT prophylaxis Current Visit: No Status: Acute Code(s): QOF3815 - SNOMED Code(s): 352801410 Comment: as per ortho pedics (7) Full code status Current Visit: No Status: Acute Code(s): Z78.9 - OTHER SPECIFIED HEALTH STATUS SNOMED Code(s): 872662239 Status and Disposition: inpatient
[2018-04-06] MEDS: Atorvastatin* 10 MG TAB PO SCH (17:37)
[2018-04-06] MEDS: Metoprolol Succinate XL TAB* 100 MG PO SCH (17:37)
[2018-04-07] MEDS: oxyCODONE/Acetamin 5/325 MG* TAB PO PRN ×4 (03:30→20:07)
[2018-04-07] MEDS: ceFAZolin 1 GM in Dextrose (*) 1 GM/50 ML BAG IVPB SCH ×2 (05:34→13:48)
[2018-04-07] MEDS: Levothyroxine TAB* 50 MCG TAB PO SCH (05:34)
[2018-04-07 05:37] LABS: Hematocrit 34 % (35-47); Hemoglobin 11.4 g/dl (12.0-16.0); Platelet Count 177 10^3/ul (150-450)
[2018-04-07] MEDS: Insulin LISPRO* 1 UNITS UNIT SUBCUT SCH ×4 (08:01→21:12)
[2018-04-07] MEDS: Lisinopril TAB* 10 MG PO SCH (08:02)
[2018-04-07] MEDS: Docusate CAP* 100 MG PO SCH ×2 (08:02→20:06)
[2018-04-07] MEDS: Apixaban* 2.5 MG TAB PO SCH ×2 (08:02→20:06)
[2018-04-07] MEDS: Vitamin THERAPEUTIC TAB PO SCH (08:02)
--- NOTE | 2018-04-07 11:02 | PN ---
Progress Note - Progress Note Date of Service: 04/07/18 SOAP: Subjective: Pt is doing well. Pain is controlled with oral pain meds. Denies Cp/SOB or F/C Objective: PE- 73 y/o WDWN F NAD A&Ox3 LLE- dressing c/d/i, calf soft NT, +DF/PF ankle, +2 Dp pulse, SILT distally Vital Signs Temp Pulse Resp BP Pulse Ox 98.6 F 62 16 153/69 93 04/07/18 07:24 04/07/18 07:24 04/07/18 10:23 04/07/18 07:24 04/07/18 07:24 Laboratory Results - last 24 hr 04/06/18 04/06/18 04/06/18 11:47 17:26 21:18 Hgb Hct Plt Count MPV POC Glucose (mg/dL) 169 H 196 H 201 H 04/07/18 04/07/18 05:23 07:10 Hgb 11.4 L Hct 34 L Plt Count 177 MPV 10.0 POC Glucose (mg/dL) 173 H Assessment: POD 2 L TKA Plan: - Cont Eliquis for DVT prophylaxis - Cont PT/OT, WBAT - Appreciate medical management - Complete post op Ancef today - Start keflex 500 mg tid x 5 days when ancef is complete -Dressing change tomorrow before discharge -Dc to home with VNS tomorrow
[2018-04-07] MEDS: oxyCODONE TAB* 5 MG TAB PO PRN ×2 (11:39→23:42)
[2018-04-07] MEDS ORDERED: Insulin LISPRO* 1 UNITS UNIT SUBCUT ONE (12:28)
--- NOTE | 2018-04-07 17:02 | PN ---
Subjective Date of Service: 04/07/18 Interval History: No complaints states that her pain is controlled. Denies chest pain or shortness of breath. Denies n/v/d Family History: Unchanged from Admission Social History: Unchanged from Admission Past Medical History: Unchanged from Admission Objective Active Medications: Acetaminophen (Tylenol Tab*) 650 mg PO Q4H PRN PRN Reason: PAIN OR TEMPERATURE Apixaban (Eliquis) 2.5 mg PO BID [facility] Last Admin: 04/07/18 08:02 Dose: 2.5 mg Atorvastatin Calcium (Lipitor*) 20 mg PO QPM [facility] Last Admin: 04/06/18 17:37 Dose: 20 mg Bisacodyl (Dulcolax Supp*) 10 mg [place] DAILY PRN PRN Reason: constipation Cephalexin HCl (Keflex Cap*) 500 mg PO TID [facility] Cyclobenzaprine HCl (Flexeril Tab*) 5 mg PO TID PRN PRN Reason: SPASMS Last Admin: 04/05/18 21:47 Dose: 5 mg Dextrose (D50w Syringe 50 Ml*) 12.5 gm IV PUSH .FOR FS < 60 - SS PRN PRN Reason: FS < 60 Diphenhydramine HCl (Benadryl Iv*) 25 mg IV Q6H PRN PRN Reason: itching Docusate Sodium (Colace Cap*) 100 mg PO BID [facility] Last Admin: 04/07/18 08:02 Dose: 100 mg Insulin Human Lispro (Humalog*) 0 units SUBCUT ACHS [facility]; Protocol Lactulose (Lactulose*) 30 ml PO Q6H PRN PRN Reason: constipation Levothyroxine Sodium (Synthroid Tab*) 50 mcg PO DAILY@0600 [facility] Last Admin: 04/07/18 05:34 Dose: 50 mcg Lisinopril (Prinivil Tab*) 20 mg PO QAM [facility] Last Admin: 04/07/18 08:02 Dose: 20 mg Magnesium Hydroxide (Milk Of Magnesia Liq*) 30 ml PO Q6H PRN PRN Reason: constipation Metoprolol Succinate (Toprol Xl Tab*) 100 mg PO QPM [facility] Last Admin: 04/06/18 17:37 Dose: 100 mg Morphine Sulfate (Morphine Vial*) 2 mg IV Q2H PRN PRN Reason: PAIN Multivitamins (Theragran Tab*) 1 tab PO DAILY [facility] Last Admin: 04/07/18 08:02 Dose: 1 tab Ondansetron HCl (Zofran Inj*) 4 mg IV Q6H PRN PRN Reason: nausea Last Admin: 04/05/18 20:14 Dose: 4 mg Oxycodone HCl (Roxycodone Tab*) 10 mg PO Q4H PRN PRN Reason: PAIN - SEVERE Last Admin: 04/07/18 11:39 Dose: 10 mg Oxycodone/Acetaminophen (Percocet 5/325 Tab*) 2 tab PO Q4H PRN PRN Reason: PAIN Last Admin: 04/07/18 16:04 Dose: 2 tab Oxycodone/Acetaminophen (Percocet 5/325 Tab*) 1 tab PO Q4H PRN PRN Reason: PAIN Vital Signs - 8 hr 04/07/18 04/07/18 04/07/18 10:23 11:13 11:39 Temperature 98.8 F Pulse Rate 80 Respiratory 16 17 18 Rate Blood Pressure 149/73 (mmHg) O2 Sat by Pulse 91 Oximetry 04/07/18 04/07/18 04/07/18 13:53 15:48 16:03 Temperature 101.1 F 98.2 F Pulse Rate 96 Respiratory 18 16 Rate Blood Pressure 156/76 (mmHg) O2 Sat by Pulse 92 Oximetry 04/07/18 16:04 Temperature Pulse Rate Respiratory 16 Rate Blood Pressure (mmHg) O2 Sat by Pulse Oximetry Oxygen Devices in Use Now: Nasal Cannula Appearance: apppears comfortable resting in bed , no acute distress Eyes: No Scleral Icterus Ears/Nose/Mouth/Throat: Clear Oropharnyx, Mucous Membranes Moist Neck: NL Appearance and Movements; NL JVP, Trachea Midline Respiratory: Symmetrical Chest Expansion and Respiratory Effort, Clear to Auscultation Cardiovascular: NL Sounds; No Murmurs; No JVD, No Edema Abdominal: NL Sounds; No Tenderness; No Distention Extremities: No Edema Skin: No Rash or Ulcers, - - dressing dry and intact to left knee Neurological: Alert and Oriented x 3 Nutrition: Taking PO's Result Diagrams: 04/07/18 05:23 04/06/18 05:46 Assess/Plan/Problems-Billing Assessment: Ms. Calderon is a 73 y.o female who presented to the hospital for an elective total left knee arthroplasty. The patient carries a hx of htn, HLD and DM. We were consulted to co manage her chronic medical conditions - Patient Problems (1) Status post total left knee replacement Current Visit: Yes Status: Acute Code(s): Z96.652 - PRESENCE OF LEFT ARTIFICIAL KNEE JOINT SNOMED Code(s): 6639502087662 Comment: managment per orthopedics PT/OT per orthopedics (2) Hypertension Current Visit: No Status: Acute Code(s): I10 - ESSENTIAL (PRIMARY) HYPERTENSION SNOMED Code(s): 29024415 Comment: stable today - will continue lisinopril and metoprolol - will restart Hctz - will continue to monitor (3) Diabetes Current Visit: No Status: Chronic Code(s): E11.9 - TYPE 2 DIABETES MELLITUS WITHOUT COMPLICATIONS SNOMED Code(s): 19525673 Comment: Lispro SS. CC diet. finger sticks (4) Hyperlipidemia Current Visit: No Status: Chronic Code(s): E78.5 - HYPERLIPIDEMIA, UNSPECIFIED SNOMED Code(s): 76262319 Comment: - Continue Statin. (5) Hypothyroidism Current Visit: No Status: Chronic Code(s): E03.9 - HYPOTHYROIDISM, UNSPECIFIED SNOMED Code(s): 75172938 Comment: Continue levothyroxine. (6) DVT prophylaxis Current Visit: No Status: Acute Code(s): SZI0714 - SNOMED Code(s): 453652213 Comment: as per ortho pedics (7) Full code status Current Visit: No Status: Acute Code(s): Z78.9 - OTHER SPECIFIED HEALTH STATUS SNOMED Code(s): 637452418 Status and Disposition: inpatient discharge as per orthopedics
[2018-04-07] MEDS: Metoprolol Succinate XL TAB* 100 MG PO SCH (17:25)
[2018-04-07] MEDS: Atorvastatin* 10 MG TAB PO SCH (17:26)
[2018-04-07] MEDS: Cephalexin CAP* 500 MG PO SCH (20:06)
--- NOTE | 2018-04-07 23:36 | OP ---
DATE OF OPERATION: 04/05/18 - ROOM #343 DATE OF : 47 SURGEON: Scott Grove MD ASSISTANTS: 1. LEANN Paniagua. 2. LEANN Cooper. The physician assistants were required for help with positioning, retraction, closure. ANESTHESIOLOGIST: Darrel Bravo MD. ANESTHESIA: General anesthesia, adductor canal regional anesthesia. PRE-OP DIAGNOSIS: Left knee osteoarthritis. POST-OP DIAGNOSIS: Left knee osteoarthritis. OPERATIVE PROCEDURE: Left total knee arthroplasty. ANTIBIOTICS: Ancef 2 g IV. IV FLUIDS: 1500 cc crystalloid. TOURNIQUET TIME: 120 minutes at 300 mmHg. SKIN TO SKIN TIME: 124 minutes. The case was slowed down by the need for us to mix cement three separate times until we had usable cement. SPECIMEN: Bone ends from the left knee sent to pathology. IMPLANTS: DePuy Olegario and Olegario ATTUNE cruciate retaining total knee arthroplasty components. Femur was a 4 narrow. Tibia was a size 2 fixed bearing. Insert was an 8 mm insert. Patella medialized dome was 32 mm in size. Cement used was Tomas PALACOS. COMPLICATIONS: None. ESTIMATED BLOOD LOSS: Minimal, less than 50 mL. 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 MRI demonstrated a posterior root medial meniscus tear as well as bony edema in the medial femoral condyle and arthritic changes throughout the knee. The patient responded insufficiently to a medial angle shearer brace, aspiration, cortisone injection, physical therapy, home exercises. The patient was quite inconvenienced by the significant pain that was refractory to our nonoperative interventions. I discussed treatments including arthroscopic partial medial meniscectomy, unicompartmental medial knee arthroplasty or total knee arthroplasty. We discussed the pros and cons of each and we decided on a total knee arthroplasty. The patient is familiar with the procedure as she had had a contralateral right knee total knee arthroplasty. As the patient had had a cortisone injection during her 02/26/18 clinic visit, approximately 6 weeks preoperatively, I discussed this with the patient and told her that it slightly increased her infection risk. I decided that I would treat her with 2 days of IV antibiotics and then a short course of oral antibiotics postoperatively to be especially conservative. I included this in my notes. Discussed risks and potential complications of surgery with the patient. I discussed recovery postoperatively. DESCRIPTION OF PROCEDURE: In preoperative holding, the patient signed a written consent. Operative extremities marked in preoperative holding. The patient was taken back to the operating room and placed supine on operating room table. After having the adductor canal block performed by Dr. Bravo, the patient was put under general anesthesia. A lateral thigh post was placed about the left knee to keep the left lower extremity with the patella facing the ceiling. Tourniquet was placed around the left proximal thigh. The left lower extremity was prepped with chlorhexidine wash and then ChloraPrep. It was then draped. Surgical timeout was performed. The tourniquet was elevated to 300 mmHg after an Esmarch was applied. Standard anterior midline longitudinal incision was made from approximately 3 fingerbreadths proximal to the prox pole patella to just distal to the tibial tubercle. I changed knives and dissected down the extensor mechanism. I cleared that off and then I marked with a pen my medial parapatellar arthrotomy. I then made that. I continued my cut distally through the anterior horn of the medial meniscus. I fully extended the knee, which I had placed into a [facility] knee positioning system. With the knee extended, I peeled the anterior capsule off the medial and lateral tibial plateau. I removed some fat pad from deep to the patellar tendon. I was able to rose mary the patella and then I flexed the knee. I cut the ACL with electrocautery and debrided stumps with rongeurs. The patient had a significant amount of wear throughout the medial femoral condyle and some lesser wear about the patellofemoral compartment. Retractors placed. I removed osteophytes, minimal about the intercondylar notch. I reamed the femoral canal. Irrigated and sucked. I placed distal femoral cutting guide. I cut 9 mm and 5 degrees of valgus. I removed instrumentation. I pinned my distal femoral sizing guide in place. The pins looked reasonably placed. I sized the femur to approximately size 4. I placed the 4 and 1 cutting block. I made my anterior cut. It did not look like there was 3 or even 1.5 mm more to take. It looks like 4 narrow would be the correct size. I added additional fixation to the form 1 cutting block. I then made by posterior , anterior chamfer and posterior chamfer cuts. I removed excess bone. I attached my external tibial alignment guide. The medial tibial plateau was the low side. I set the guide to remove 3 mm on the low medial tibial plateau side. I placed 2 pins. I placed a different alignment gerry and perfected the orientation prior to my third pin being placed. Retractors placed including a pickle fork about the PCL. I then used an oscillating saw to remove the superior most aspect of the tibial plateaus. I measured the thickness of the removed bone. This is approximately 12 mm from the lateral side and 1 to 2 mm from the thinnest part of the medial side. I liked my cut. I took it off in one piece. I next removed meniscus with Bovie electrocautery. I then removed some cartilage from the posterior aspect of the medial and lateral femoral condyles. I used a dog bone spacer to confirm both the orientation of my cuts and the symmetry of the flexion extension gaps. I trialed with a 6 mm and a 7 mm dog bone. The knee was tight with varus and valgus stress with flexion and extension. I placed a femoral trial and drilled through that femoral trial into the condyles. Using slow technique, I determined the correct orientation of my tibial component. I also mentally marked the medial third of the tibial tubercle. Retractors were placed. I sized the tibia to be a size 2. I set the correct orientation of the tibial component. I pinned in place a guide. I reamed and then punched through that guide after pinning the guide in place. I removed all instruments. I fully extended the knee. I measured the patella to be only 21 mm in thickness from superficial to deep. Using freehand technique, I removed the undersurface of the patella so as to make it 13 mm deep from superficial to deep. I sized it to a 32 mm and drilled 3 holes throughout. I then trialed all my components. I had great range of motion 0 to at least 120 degrees of flexion. I did not have much of laxity with varus valgus stress in full extension and in flexion to 90 degrees. Irrigation. Some extra bone, from the anterior chamfer cut was placed into the femoral canal. Irrigation. The cement was mixed. There was some difficulty with the job placement specialist, broken component. Therefore, we mixed the second time. There was some spilling of the cement component so the cement was then mixed a third time by an metal forger's assistant. The cement was mixed for 45 seconds, PALACOS Tomas cement. This cement was applied to the bone after it had been dried very nicely and then the components were put into place. A trial 7 mm insert was placed and the knee was placed in full extension and the hardware was allowed to fully harden before any irrigation. I removed insert and I trialed with a 7 mm insert. There was some opening laterally in both full extension and in flexion. This was curious because it was not present earlier. It was not overly significant. However, I increased the insert size to an 8 mm insert, which gave me a nice retention, although there was a little bit more opening laterally than medially, which in some people is very much their baseline. Irrigation. With the knee flexed approximately 30 degrees, we closed the arthrotomy and quadriceps tendon with a figure 8 stitches using Ethibond and then Vicryl 0 suture. Irrigation. A closure of the subcutaneous tissue with buried simple stitches using Vicryl 2.0 suture. Closure of the skin with liza. It should be noted that local anesthetic, approximately 20 mL of 0.5% Marcaine was injected into the posterior capsule prior to closure. Dressing consisted of Xeroform, 4x4's, ABDs, sterile Webril, Holden bandage from foot to proximal thigh. Cooling unit placed over the knee. DISPOSITION: The patient was extubated and transferred to the PACU for eventual transfer to the floor. She was admitted to the orthopedic service with hospitalist consulting given the patient's hypertension and diabetes mellitus. The patient was to start physical therapy immediately on postoperative day 1 in the morning. Eliquis 2.5 mg p.o. b.i.d. x4 weeks for DVT prophylaxis. Ancef 1 g IV q. 8 hours x48 hours postoperatively followed by 5 days of Keflex 500 mg p.o. t.i.d. The patient will follow up in clinic in approximately 2 weeks postoperative and then 6 weeks postoperative. We obtained x-rays in recovery room that showed no fracture in excellent position of components. [id number]/CPS #: [id number] NIKITA
[2018-04-08] MEDS: Levothyroxine TAB* 50 MCG TAB PO SCH (05:25)
[2018-04-08] MEDS: oxyCODONE/Acetamin 5/325 MG* TAB PO PRN ×2 (05:26→09:44)
[2018-04-08 06:49] LABS: Hematocrit 33 % (35-47); Hemoglobin 11.2 g/dl (12.0-16.0); Mean Platelet Volume 10.2 um3 (7.4-10.4); Platelet Count 176 10^3/ul (150-450)
[2018-04-08 07:53] VITALS: BP 152/94
[2018-04-08] MEDS: Cephalexin CAP* 500 MG PO SCH (08:34)
[2018-04-08] MEDS: Vitamin THERAPEUTIC TAB PO SCH (08:34)
[2018-04-08] MEDS: Lisinopril TAB* 10 MG PO SCH (08:34)
[2018-04-08] MEDS: Apixaban* 2.5 MG TAB PO SCH (08:35)
[2018-04-08] MEDS: Docusate CAP* 100 MG PO SCH (08:35)
[2018-04-08] MEDS: oxyCODONE TAB* 5 MG TAB PO PRN (08:35)
[2018-04-08] MEDS: Insulin LISPRO* 1 UNITS UNIT SUBCUT SCH (08:35)
[2018-04-08] MEDS ORDERED: Hydrochlorothiazide TAB* 25 MG PO SCH (09:00)
--- NOTE | 2018-04-08 15:38 | PN ---
Progress Note - Progress Note Date of Service: 04/08/18 SOAP: Subjective: [] Patient seen at bedside. She report 6/10 left knee pain. She denies chest pain, shortness of breath or dizziness. Objective: [] Vital Signs Temp 97.7 F 04/08/18 07:21 Pulse 74 04/08/18 07:21 Resp 16 04/08/18 10:35 BP 152/94 04/08/18 07:52 Pulse Ox 96 04/08/18 07:21 Intake & Output 04/07/18 04/08/18 04/08/18 18:59 06:59 18:59 Intake Total 940 700 200 Output Total 600 700 100 Balance 340 0 100 Intake: Oral 940 700 200 Output: Urine 600 700 100 General:well appearing, NAD LLE: Dressing of left knee CDI, dressing changed and incision CDI with well approximated wound edges. DF/PF intact. DP2+. Sensation intact to light touch distally. BL Calves supple and nontender without erythema, edema or palpable cords. Assessment: [] POD 3 L TKA Plan: - Eliquis for DVT prophylaxis - PT/OT, WBAT - keflex 500 mg tid x 5 days - Dressing change daily - DC to home with VNS, outpatient PT
--- NOTE | 2018-04-09 09:21 | DS ---
DISCHARGE SUMMARY: DATE OF ADMISSION: 04/05/18 DATE OF DISCHARGE: 04/08/18 PROVIDER AND SURGEON: Dr. Scott Grove.* (DICTATED BY LEANN WALLACE) ASSISTANTS: 1. LEANN Paniagua 2. LEANN Cooper PRE-OP DIAGNOSIS: Left knee osteoarthritis. OPERATIVE PROCEDURE: Left total knee arthroplasty. HISTORY: Ms. Calderon is a 73-year-old female with left knee osteoarthritis and left knee pain. On MRI, she had a posterior root medial meniscus tear as well as bony edema in the medial femoral condyle and arthritic changes throughout the knee. She responded insufficiently to a medial die out worker brace, aspiration, cortisone injection, physical therapy, and home exercises. She therefore elected to undergo a left total knee arthroplasty. HOSPITAL COURSE: Ms. Calderon was admitted to [facility] on . She underwent a left total knee arthroplasty in the PACU and then was transferred to the short-stay surgical unit in stable condition. The patient was followed by our hospitalist service during her stay as well. On postop day 1, the patient walked to the bathroom with PT. She was doing quite well. Dressing was intact. The patient was neurovascularly intact on operative leg. She started Eliquis for DVT prophylaxis and was continuing Ancef. Postop day 2 , she is well appearing, in no acute distress, alert and oriented x3. Dressing clean, dry, and intact. Calf is soft, nontender. Dorsiflexion and plantarflexion intact about the ankle, 2+ dorsalis pedis pulse. Sensation is intact distally. On 04/08/18, the patient seen at bedside. She was well appearing, in no acute distress. Dressing was changed. Incision clean, dry, and intact without surrounding erythema, without discharge. Calf supple, nontender without palpable cords bilaterally. Operative leg with dorsiflexion and plantarflexion intact. 2+ dorsalis pedis pulse. Sensation is intact to light touch distally. LABORATORY DATA: Labs included hemoglobin of 11.2, hematocrit 33. PHYSICAL EXAMINATION: Vital Signs: Temperature 97.9, pulse 74, respiratory rate 16, oxygen saturation 96, and blood pressure 152/94. The patient is deemed to be medically and orthopedically stable for discharge home. DISCHARGE MEDICATIONS: Include: 1. Levothyroxine 50 mcg p.o. daily. 2. Aspirin 81 mg p.o. q.a.m. 3. Hydrochlorothiazide 25 mg p.o. q.a.m. 4. Janumet one tab p.o. b.i.d. 5. Albuterol 1 to 2 puffs inhaled every 6 hours as needed. 6. Isosorbide mononitrate 60 mg p.o. daily. 7. Lisinopril 20 mg p.o. daily. 8. Percocet 5/325 one to two tabs every 4 to 6 hours as needed for pain, max daily dose of 6. 9. Metoprolol 100 mg p.o. q.p.m. 10. Glyburide 5 mg p.o. b.i.d. 11. Vytorin 1 tab p.o. daily. 12. Simvastatin 20 mg p.o. daily. 13. Magnesium 1 tab p.o. q.p.m. 14. Acetaminophen 650 mg p.o. q.4 hours p.r.n. 16. Eliquis 2.5 mg p.o. b.i.d. for 30 days. 17. Cephalexin 500 mg p.o. t.i.d. for 5 days. 18. Docusate 100 mg p.o. b.i.d. DISCHARGE PLAN: Weightbearing as tolerated. Okay to shower 3 days after surgery. Do not submerge the wound. Continue physical therapy and occupational therapy exercises as shown. No need to start physical therapy as an outpatient right away. Referrals included with this discharge packet. DVT prophylaxis is with Eliquis 2.5 mg every 12 hours for 4 weeks; antibiotic, Keflex 500 mg take 1 tab 3 times a day for 5 days; pain control, Percocet 5/325 one to two tabs every 4 to 6 hours as needed for pain, max of 10 per day. Follow up with Dr. Grove in 2 weeks. MARLIN HAYWARD, LEANN [id number]/[facility] #: [id number] [facility]
== END 2018-04-08 10:55 | disposition home health service (06) | DRG 470 ==
LOC: AA 11:09 → SSU 19:12
PROVIDERS: ADMIT Orthopaedic Surgery; ATTEND Orthopaedic Surgery
PROC: 0SRD0J9 Replacement of Left Knee Joint with Synthetic Substitute, Cemented, Open Approach (ICD-10-PCS; principal; 2018-04-05 12:30)
DX: M17.12 Unilateral primary osteoarthritis, left knee (principal); I10 Essential (primary) hypertension; M23.222 Derangement of posterior horn of medial meniscus due to old tear or injury, left knee; E78.5 Hyperlipidemia, unspecified; E11.9 Type 2 diabetes mellitus without complications; M25.762 Osteophyte, left knee; E03.9 Hypothyroidism, unspecified; Z96.651 Presence of right artificial knee joint; Z79.84 Long term (current) use of oral hypoglycemic drugs; Z79.82 Long term (current) use of aspirin; Z79.899 Other long term (current) drug therapy; Z91.013 Allergy to seafood; Z91.048 Other nonmedicinal substance allergy status; Z80.0 Family history of malignant neoplasm of digestive organs; Z82.49 Family history of ischemic heart disease and other diseases of the circulatory system
CPT/HCPCS: 36415; 80048; 85014; 85018; 85049; 88305; 88311; A9270-GY; C1776; G8978-GP-CK; G8979-GP-CI; G8987-GO-CJ; G8988-GO-CJ; G8989-GO-CJ; J0360; J0461; J0690; J1100; J1170; J2250; J2405; J2704; J2795; J3010

== ENCOUNTER 2019-12-05 07:49 | Emergency (ER) | payer MEDICARE, OTHER ==
[2019-12-05] MEDS ORDERED: NS 0.9% 1000 ML** 1,000 ML IV ONE ×2 (08:07→10:13)
[2019-12-05] MEDS ORDERED: Ondansetron INJ* 2 MG/ML VIAL IV ONE (08:09)
--- NOTE | 2019-12-05 08:09 | ED ---
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 Patient reports having a bad cough, nasal discharge, sore throat, chills, and diaphoresis for the past 5 days. Patient denies fever. 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 The patient rates the pain 7/10 in severity. Symptoms aggravated by nothing. Symptoms alleviated by nothing. Medications reviewed. Allergies noted. Home Medications Medication Instructions Recorded Confirmed Type Aspirin EC TAB* [Ecotrin EC Low 81 mg PO QAM 03/28/18 04/05/18 History Dose 81 MG*] Levothyroxine TAB* [Synthroid TAB*] 50 mcg PO QAM 03/28/18 04/05/18 History Magnesium Oxide [Magnesium] 100 mg PO QPM 03/28/18 04/05/18 History Metoprolol Succinate XL TAB* 100 mg PO QPM 03/28/18 04/05/18 History [Toprol XL TAB*] Sitaglip/Metform XR50/1000(NR) 1 tab PO BID 03/28/18 04/05/18 History [Janumet Xr (NR)] glipiZIDE TAB.XL* [Glucotrol Xl*] 5 mg PO QAM 03/28/18 04/05/18 History Hydrochlorothiazide TAB* 25 mg PO QAM 04/05/18 04/05/18 History [Hydrodiuril TAB*] Lisinopril TAB* [Prinivil TAB 10 20 mg PO QAM 04/05/18 04/05/18 History MG*] Simvastatin 20 mg PO QPM 04/05/18 04/05/18 History Acetaminophen TAB* [Tylenol TAB*] 650 mg PO Q4H PRN tab 04/08/18 Rx Apixaban* [Eliquis*] 2.5 mg PO BID tab 04/08/18 Rx Cephalexin CAP* [Keflex 500 CAP*] 500 mg PO TID cap 04/08/18 Rx Docusate CAP* [Colace Cap*] 100 mg PO BID cap 04/08/18 Rx oxyCODONE/Acetamin 5/325 MG* 1 tab PO Q4H PRN tab MDD 10 04/08/18 Rx [Percocet 5/325 TAB*] oxyCODONE/Acetamin 5/325 MG* 2 tab PO Q4H PRN tab MDD 10 04/08/18 Rx [Percocet 5/325 TAB*] - History of Current Complaint Chief Complaint: EDNauseaVomitDiarrh Time Seen by Provider: 12/05/19 07:58 Hx Obtained From: Patient Onset/Duration: Lasting Days, Still Present - Allergy/Home Medications Allergies/Adverse Reactions: Allergies Allergy/AdvReac Type Severity Reaction Status Date / Time Iodinated Contrast Media Allergy Rash Verified 12/05/19 07:53 [Iodinated Contrast- Oral and IV Dye] iodine Allergy Rash Verified 12/05/19 07:53 shellfish derived Allergy Rash Verified 12/05/19 07:53 Home Medications: Home Medications Aspirin EC TAB* [Ecotrin EC Low Dose 81 MG*] 81 mg PO QAM 03/28/18 [History Confirmed 04/05/18] Levothyroxine TAB* [Synthroid TAB*] 50 mcg PO QAM 03/28/18 [History Confirmed ] Magnesium Oxide [Magnesium] 100 mg PO QPM 03/28/18 [History Confirmed 04/05/18] Metoprolol Succinate XL TAB* [Toprol XL TAB*] 100 mg PO QPM 03/28/18 [History Confirmed 04/05/18] Sitaglip/Metform XR50/1000(NR) [Janumet Xr (NR)] 1 tab PO BID 03/28/18 [ History Confirmed 04/05/18] glipiZIDE TAB.XL* [Glucotrol Xl*] 5 mg PO QAM 03/28/18 [History Confirmed ] Hydrochlorothiazide TAB* [Hydrodiuril TAB*] 25 mg PO QAM 04/05/18 [History Confirmed 04/05/18] Lisinopril TAB* [Prinivil TAB 10 MG*] 20 mg PO QAM 04/05/18 [History Confirmed 04/05/18] Simvastatin 20 mg PO QPM 04/05/18 [History Confirmed 04/05/18] Acetaminophen TAB* [Tylenol TAB*] 650 mg PO Q4H PRN tab 04/08/18 [Rx] Apixaban* [Eliquis*] 2.5 mg PO BID tab 04/08/18 [Rx] Cephalexin CAP* [Keflex 500 CAP*] 500 mg PO TID cap 04/08/18 [Rx] Docusate CAP* [Colace Cap*] 100 mg PO BID cap 04/08/18 [Rx] oxyCODONE/Acetamin 5/325 MG* [Percocet 5/325 TAB*] 1 tab PO Q4H PRN tab MDD 10 04/08/18 [Rx] oxyCODONE/Acetamin 5/325 MG* [Percocet 5/325 TAB*] 2 tab PO Q4H PRN tab MDD 10 04/08/18 [Rx] Ondansetron TAB* [Zofran 4 MG Tab*] 4 mg PO Q6H PRN #10 tab 12/05/19 [Rx] PMH/Surg Hx/FS Hx/Imm Hx Endocrine/Hematology History: Reports: Hx Diabetes, Hx Thyroid Disease - HYPOTHYROIDISM Denies: Hx Anticoagulant Therapy Cardiovascular History: Reports: Hx Angina, Hx Hypercholesterolemia - HLD, Hx Hypertension, Other Cardiovascular Problems/Disorders - Hyperlipidemia Denies: Hx Pacemaker/ICD Respiratory History: Denies: Other Respiratory Problems/Disorders GI History: Reports: Hx Gastroesophageal Reflux Disease, Hx Hiatal Hernia - 2 previous surgeries Denies: Other GI Disorders History: Reports: Other Problems/Disorders - Frequent urination Denies: Hx Renal Disease Musculoskeletal History: Reports: Hx Arthritis, Other Musculoskeletal History - DJD Sensory History: Reports: Hx Contacts or Glasses Denies: Hx Hearing Aid Opthamlomology History: Reports: Hx Contacts or Glasses Neurological History: Denies: Other Neuro Impairments/Disorders Psychiatric History: Denies: Hx Panic Disorder, Other Psychiatric Issues/Disorders - Cancer History Hx Chemotherapy: No Hx Radiation Therapy: No - Surgical History Surgery Procedure, Year, and Place: . Complete Hysterectomy. Hiatal Hernia Repair x2. RIGHT knee replacemnt-2008 Hx Anesthesia Reactions: No - Immunization History Date of Tetanus Vaccine: up to date Date of Influenza Vaccine: never Infectious Disease History: No Infectious Disease History: Denies: Hx Clostridium Difficile, Hx Hepatitis, Hx Human Immunodeficiency Virus (HIV), Hx of Known/Suspected MRSA, Hx Shingles, Hx Tuberculosis, Hx Known/ Suspected VRE, Hx Known/Suspected VRSA, History Other Infectious Disease, Traveled Outside the [place] in Last 30 Days - Family History Known Family History: Positive: Cardiac Disease, Hypertension - Social History Alcohol Use: None Hx Substance Use: No Substance Use Type: Reports: None Hx Tobacco Use: No Smoking Status (MU): Never Smoked Tobacco Have You Smoked in the Last Year: No Review of Systems Positive: Chills, Skin Diaphoresis. Negative: Fever Positive: Sore Throat, Nasal Discharge Positive: Cough Positive: Vomiting, Diarrhea, Nausea All Other Systems Reviewed And Are Negative: Yes Physical Exam - Summary Physical Exam Summary: VITAL SIGNS: Reviewed. GENERAL: Patient is a well-developed and nourished female who is lying comfortable in the stretcher. Patient is not in any acute respiratory distress. HEAD AND FACE: No signs of trauma. No ecchymosis, hematomas or skull depressions. No sinus tenderness. EYES: PERRLA, EOMI x 2, No injected conjunctiva, no nystagmus. EARS: Hearing grossly intact. Ear canals and tympanic membranes are within normal limits. MOUTH: Oral mucosa dry. NECK: Supple, trachea is midline, no adenopathy, no JVD, no carotid bruit, no c- spine tenderness, neck with full ROM. CHEST: Symmetric, no tenderness at palpation. LUNGS: Decreased breath sounds. CVS: Regular rate and rhythm, S1 and S2 present, no murmurs or gallops appreciated. ABDOMEN: Soft, non-tender. No signs of distention. No rebound, no guarding, and no masses palpated. Bowel sounds are normal. EXTREMITIES: FROM in all major joints, no edema, no cyanosis or clubbing. NEURO: Alert and oriented x 3. No acute neurological deficits. Speech is normal and follows commands. SKIN: Dry and warm. Triage Information Reviewed: Yes Vital Signs On Initial Exam: Initial Vitals Temp Pulse Resp BP Pulse Ox 96.8 F 74 16 201/109 94 12/05/19 07:51 12/05/19 07:51 12/05/19 07:51 12/05/19 07:51 12/05/19 07:51 Vital Signs Reviewed: Yes Procedures - Sedation Patient Received Moderate/Deep Sedation with Procedure: No Diagnostics - Vital Signs Vital Signs Temp Pulse Resp BP Pulse Ox 12/05/19 07:51 96.8 F 74 16 201/109 94 - Laboratory Result Diagrams: 12/05/19 08:47 12/05/19 08:47 Lab Statement: Any lab studies that have been ordered have been reviewed, and results considered in the medical decision making process. - Radiology CXR Radiology Interpretation Completed By: Radiologist Summary of Radiographic Findings: IMPRESSION: MILD CARDIOMEGALY. has reviewed this report. - EKG 0818 Cardiac Rate: Bradycardia EKG Rhythm: Sinus Rhythm Summary of EKG Findings: An EKG at 0818 reveals sinus rhythm at a rate of [address] depressions in leads I and II and aVL noted it V4 to V6. This EKG was reviewed and interpreted by . 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 Patient reports having a bad cough, nasal discharge, sore throat , chills, and diaphoresis for the past 5 days. Patient denies fever. 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 The patient rates the pain 7/10 in severity. Symptoms aggravated by nothing. Symptoms alleviated by nothing. Medications reviewed. Allergies noted. In the ED course the patient was placed in a dental office manager, IV access was obtained, IV fluids started. Past medical records reviewed. Blood test w/o a significant abnormality except for BUN 26, creatinine 0.99, glucose 154. Lactic acid is 2.4 and first troponin 0.04. RBC is 4.97, MPV is 10.6, and BUN/Creatinine ration is 26.3. EKG at 0818 reveals sinus rhythm at a rate of [address] depressions in leads I and II and aVL noted it V4 to V6. mild cardiomegaly. The patient was given Zofran and she was hydrated with IV fluids and the second lactic acid was 1.1 and the second troponin 0.04. The patient usually has some baseline of troponin 0.04. Urinalysis is negative for UTI, influenza A and B. The patient was observed for approximately 7 hours and she was not able to give a stool sample. Since the patient is feeling better she will be discharged home with follow-up with PCP. I discussed all the findings and test results with the patient. Patient was instructed to return to the emergency room immediately if any of the symptoms return worsens. Plan of care was discussed with the patient and understands and agrees. All questions were answered at patient satisfaction. There were no further complaints or concerns. Lung exam before discharge: CTA B/ L. Good air exchange. No wheezing or crackles heard. CVS: S1 and S2 present. No murmurs appreciated. Patient is alert and oriented x 3. Patient is hemodynamically stable. Patient will be discharged home with follow up PCP in the next 2-3 days. - Diagnoses Provider Diagnoses: Nausea & vomiting, Diarrhea Discharge ED - Sign-Out/Discharge Documenting (check all that apply): Patient Departure - discharge - Discharge Plan Condition: Stable Disposition: HOME Prescriptions: Ondansetron TAB* [Zofran 4 MG Tab*] 4 mg PO Q6H PRN #10 tab PRN Reason: Nausea Patient Education Materials: Acute Nausea and Vomiting (ED), Acute Diarrhea (ED ) Referrals: Amol Chery MD [Primary Care Provider] - 3 Days Additional Instructions: Please return to emergency department for any new or worsening symptoms. Please follow up with your primary care physician within 1-3 days. - Billing Disposition and Condition Condition: STABLE Disposition: Home - Attestation Statements Document Initiated by Mukeshibe: Yes Documenting Scribe: Colt Garcia Provider For Whom Marcin is Documenting (Include Credential): Dr.Walter Abdifatah MD Scribe Attestation: Colt Farris scribed for Dr.Walter Abdifatah MD on 12/06/19 at 0720. Scribe Documentation Reviewed: Yes Provider Attestation: The documentation as recorded by the Colt allen accurately reflects the service I personally performed and the decisions made by me, Dr.Walter Abdifatah MD Status of Scribe Document: Viewed
[2019-12-05 08:39] LABS: Urine Appearance Clear; Urine Bilirubin Negative (Negative); Urine Blood Negative (Negative); Urine Color Yellow; Urine Glucose Negative (Negative); Urine Ketones Negative (Negative); Urine Nitrite Negative (Negative); Urine Protein Negative (Negative); Urine Specific Gravity 1.017 (1.010-1.030); Urine Urobilinogen Negative (Negative)
[2019-12-05 08:51] LABS: Influenza A Molecular Negative (Negative); Influenza B Molecular Negative (Negative)
[2019-12-05 09:09] LABS: ABS Lymphocytes 1.8 10^3/ul (1.0-4.8); ABS Monocytes 0.4 10^3/ul (0-0.8); Eosinophil % 0.5 %; Hematocrit 42 % (35-47); Hemoglobin 13.7 g/dL (12.0-16.0); Lymphocyte % 25.1 %; Mean Corpuscular HGB Conc 33 g/dL (31-36); Mean Corpuscular Hemoglobin 28 pg (27-31); Mean Corpuscular Volume 84 fL (80-97); Mean Platelet Volume 10.6 fL (7.4-10.4); Platelet Count 211 10^3/uL (150-450); Red Blood Count 4.97 10^6 /uL (3.70-4.87); Red Cell Distribution Width 15 % (10-15); White Blood Count 7.3 10^3/uL (3.5-10.8)
[2019-12-05 09:29] LABS: ALT 16 U/L (7-52); AST 21 U/L (13-39); Albumin 4.4 g/dL (3.2-5.2); Albumin/Globulin Ratio 1.4 (1-3); Alkaline Phosphatase 68 U/L (34-104); Anion Gap 11 mmol/L (2-11); BUN/Creatinine Ratio 26.3 (8-20); Blood Urea Nitrogen 26 mg/dL (6-24); C Reactive Protein 3.69 mg/L (<8.01); CO2 Carbon Dioxide 24 mmol/L (22-32); Calcium 9.9 mg/dL (8.6-10.3); Chloride 103 mmol/L (101-111); EGFR African American 66.5 (>60); Globulin 3.1 g/dL (2-4); Glucose 154 mg/dL (70-100); Potassium 3.9 mmol/L (3.5-5.0); Sodium 138 mmol/L (135-145); Total Protein 7.5 g/dL (6.4-8.9)
[2019-12-05 09:33] LABS: CKMB ng/mL 3.9 ng/mL (0.6-6.3)
[2019-12-05 09:37] LABS: Troponin I 0.04 ng/mL (<0.03)
[2019-12-05] MEDS ORDERED: Aspirin 81 mg CHEW TAB* 81 MG TAB.CHEW PO ONE (09:45)
[2019-12-05 13:48] LABS: Troponin I 0.04 ng/mL (<0.03)
[2019-12-05 14:42] VITALS: BP 151/80
== END 2019-12-05 14:42 | disposition home or self-care (01) ==
LOC: ED 07:49
DX: R11.2 Nausea with vomiting, unspecified (principal); R05 Cough; J02.9 Acute pharyngitis, unspecified; R68.83 Chills (without fever); R61 Generalized hyperhidrosis; I51.7 Cardiomegaly; R00.1 Bradycardia, unspecified; J34.89 Other specified disorders of nose and nasal sinuses; E11.9 Type 2 diabetes mellitus without complications; Z79.84 Long term (current) use of oral hypoglycemic drugs; E03.9 Hypothyroidism, unspecified; E78.00 Pure hypercholesterolemia, unspecified; I10 Essential (primary) hypertension; Z79.01 Long term (current) use of anticoagulants; Z79.899 Other long term (current) drug therapy; Z91.041 Radiographic dye allergy status; Z91.013 Allergy to seafood; Z91.048 Other nonmedicinal substance allergy status
CPT/HCPCS: 36415; 71046; 80053; 81003; 82553; 83605; 84484; 85025; 86140; 87040; 93005; 96361; 96374; 99284; A9270-GY; J2405

== ENCOUNTER 2024-05-09 11:49 | Observation (INO) ==
[2024-05-09 12:29] LABS: ABS Basophils 0.1 10^3/uL (0.0-0.1); ABS Lymphocytes 1.9 10^3/uL (1.0-4.8); ABS Monocytes 0.9 10^3/uL (0.0-0.9); Eosinophil % 0.2 %; Hemoglobin 13.7 g/dL (11.5-14.3); Lymphocyte % 14.8 %; Mean Corpuscular Hemoglobin 27.7 pg (27-33); Mean Corpuscular Hgb Conc 32.7 g/dL (31-36); Mean Corpuscular Volume 84.8 fL (80-97); Mean Platelet Volume 10.3 fL (7.5-11.2); Platelet Count 222 10^3/uL (150-450); Red Blood Count 4.96 10^6/uL (3.63-4.92); Red Cell Distribution Width 13.9 % (12-17); White Blood Count 12.9 10^3/uL (3.8-11.8)
[2024-05-09 12:52] LABS: ALT 19 U/L (7-52); Albumin 4.4 g/dL (3.2-5.2); Albumin/Globulin Ratio 1.7 (1-3); Alkaline Phosphatase 62 U/L (35-149); Anion Gap 9 mmol/L (2-16); Blood Urea Nitrogen 36 mg/dL (6-24); CO2 Carbon Dioxide 26 mmol/L (22-32); Calcium 9.5 mg/dL (8.6-10.3); Chloride 103 mmol/L (101-111); Creatinine, Serum 1.38 mg/dL (0.51-0.95); Globulin 2.6 g/dL (2-4); Glucose 99 mg/dL (70-100); Sodium 138 mmol/L (135-145); Total Bilirubin 0.9 mg/dL (0.2-1.0); eGFR CKD-EPI 39.2 (>60)
[2024-05-09] MEDS: Lactated Ringers 1000 ml BAG 1,000 ML IV SCH ×2 (12:53→20:53)
[2024-05-09 12:54] LABS: High Sens Troponin Baseline 20 pg/mL (<15)
[2024-05-09 14:08] LABS: INR 1.16 (0.83-1.13)
[2024-05-09 15:29] LABS: Potassium Redraw 4.4 mmol/L (3.5-5.0)
[2024-05-09 16:31] LABS: High Sensitivity Troponin 3 Hr 42 pg/mL (<15)
[2024-05-09 18:40] LABS: Urine Appearance Turbid; Urine Bilirubin Negative (Negative); Urine Blood Negative (Negative); Urine Color Yellow; Urine Glucose 3+ (>=300 mg/dL) (Negative); Urine Ketones Negative (Negative); Urine Nitrite Negative (Negative); Urine Protein 1+ (>=30 mg/dL) (Negative); Urine Specific Gravity 1.015 (1.002-1.030); Urine Urobilinogen Negative (Negative)
[2024-05-09 18:57] LABS: Urine Bacteria 2+ /HPF (Absent); Urine Red Blood Cell 1+(3-5/hpf) /HPF (0-Trace); Urine Squamous Epithelial Cell Present /HPF (Absent); Urine White Blood Cell 2+(11-20/hpf) /HPF (0-Trace)
[2024-05-09] MEDS: cefTRIAXone 1 gm/50 mL D5W 1 GM/50 ML BAG IV SCH ×2 (20:38→20:53)
[2024-05-09] MEDS: methylPREDNISolone SOD SUCC 40 mg/ml 1 ml VIAL IV ONE (20:53)
[2024-05-09] MEDS: Iodixanol (CONTRAST) 320 MG/ML 100 ML SDV IV ONE (21:55)
[2024-05-10 05:21] LABS: ABS Lymphocytes 1.3 10^3/uL (1.0-4.8); ABS Monocytes 0.1 10^3/uL (0.0-0.9); ABS Neutrophils 3.6 10^3/uL (1.5-7.6); Hematocrit 38.8 % (35-45); Hemoglobin 12.8 g/dL (11.5-14.3); Lymphocyte % 25.5 %; Mean Corpuscular Hemoglobin 27.9 pg (27-33); Mean Corpuscular Hgb Conc 33.1 g/dL (31-36); Mean Corpuscular Volume 84.2 fL (80-97); Mean Platelet Volume 10.2 fL (7.5-11.2); Nucleated Red Blood Cells % 0.1 %/100WBC (0.0-0.8); Platelet Count 190 10^3/uL (150-450); Red Cell Distribution Width 13.7 % (12-17)
[2024-05-10 06:12] LABS: Calcium 9.2 mg/dL (8.6-10.3); Creatinine, Serum 1.08 mg/dL (0.51-0.95); Magnesium 1.8 mg/dL (1.9-2.7); Phosphorus 4.2 mg/dL (2.5-5.0); Potassium 4.8 mmol/L (3.5-5.0); eGFR CKD-EPI 52.6 (>60)
[2024-05-10] MEDS: Empagliflozin 25 MG TAB PO SCH (08:59)
[2024-05-10] MEDS: Enoxaparin 40 MG/0.4 ML SYR SUBCUT SCH (10:49)
[2024-05-10] MEDS: Lactated Ringers 1000 ml BAG 1,000 ML IV SCH (10:50)
[2024-05-10] MEDS: Lidocaine PATCH 5% PATCH TRANSDERM PRN (12:47)
[2024-05-11 06:01] LABS: Calcium 8.8 mg/dL (8.6-10.3); Creatinine, Serum 1.08 mg/dL (0.51-0.95); Magnesium 1.7 mg/dL (1.9-2.7); Potassium 4.6 mmol/L (3.5-5.0); eGFR CKD-EPI 52.6 (>60)
[2024-05-11] MEDS: SEMAGLUTIDE 7 MG PO SCH ×2 (10:15→11:19)
[2024-05-11] MEDS ORDERED: Sulfur Hexaflouride MICROSPHR 25 MG VIAL ONE (10:37)
[2024-05-11] MEDS: Sulfur Hexaflouride MICROSPHR 25 MG VIAL IV ONE (10:41)
[2024-05-11 13:55] VITALS: BP 111/59
== END 2024-05-11 16:44 | disposition home or self-care (01) ==
LOC: EDHOLD 11:49 → ED 11:49 → SSU 20:35 → MEDTELE 23:41
PROVIDERS: ADMIT Internal Medicine; ATTEND Internal Medicine